=== PATIENT | female | born 1930 | race Caucasian/White ===

== ENCOUNTER 2018-09-13 13:46 | Outpatient (CLI) | payer MEDICARE ==
--- NOTE | 2018-09-13 16:53 | CT ---
CT THORAX WITH IV CONTRAST CT ABDOMEN AND PELVIS WITH IV CONTRAST 09/13/18 HISTORY: Endometrial cancer. COMPARISON: None available. CT THORAX: A few scattered less than 4 mm pulmonary nodule seen within the lateral aspect of the right lower lob e with a larger approximately 6 mm noncalcified pulmonary nodule also present in the right lower lobe . Small subpleural nodular density is also seen at the right lung base. There are a few pulmonary no dules seen at the left lung base each measuring approximately 5 mm. Minimal reticulonodular densities are seen at the more lateral aspect of the right lung base which could be related to minimal infecti ous or inflammatory process. Scattered emphysematous changes are seen within the lungs bilaterally. No pleural effusion is seen. There is no evidence of lymphadenopathy. Dual lead left subclavian cardiac pacemaking device is noted in place. Vascular calcifications are se en involving the coronary arteries as well as the thoracic aorta. Degenerative changes are seen in the spine. CT ABDOMEN AND PELVIS: There is a hypodense lesion within the lateral segment of the left hepatic lobe measuring 3.2 cm worr isome for a metastatic lesion. Subcentimeter too small to characterize hypodense lesions are seen in the superior pole right kidney. The kidneys have a lobulated appearance bilaterally likely related to lobulation. The spleen, pancreas, bilateral adrenal glands and urinary bladder demonstrate a normal CT appearance . There is a low density mass-like structure seen within the central body of the uterus measuring appro ximately 4.1 cm. This may be attributable to patient's known endometrial cancer, but this is difficul t to characterize on CT evaluation. There is a circumscribed hypodense fluid attenuation cystic structure in the right posterolateral asp ect of the pelvis measuring 4 cm which may represent an ovarian cyst. However, this is larger than ty pically expected for postmenopausal female patient. Opacified bowel has a normal CT appearance. There are prominent vascular calcifications seen in the abdominal aorta and involving the iliac arter ies. Vascular stents are seen in the common iliac arteries bilaterally . No free fluid, fluid collection, or lymphadenopathy is seen in the abdomen or pelvis. Degenerative changes are seen in the spine. No lytic or sclerotic osseous lesions are identified. IMPRESSION: 1. Hypodense lesion in the left hepatic lobe not consistent with a cyst and could be related to a metastatic lesion. 2. Scattered subcentimeter pulmonary nodules predominantly within the lower lobes bilaterally wi th faint nodular density in the right upper lobe measuring 7 mm. While these pulmonary nodules overal l are nonspecific, given multiplicity, metastatic disease cannot be entirely excluded. 3. Minimal reticulonodular densities at the posterolateral right lung base which could be relate d to mild infectious or inflammatory process. 4. Hypodense mass-like area centrally within the uterus which may represent patient's known endo metrial cancer. 5. Cystic structure in the right posterior aspect of the pelvis and adnexal region. This may rep resent an ovarian cyst, but given the size of this lesion in a patient of this age, a gynecological c onsultation is suggested. 6. Colonic diverticulosis. 7. Remainder of the findings are as described above including dense vascular calcifications. POS: ASHANTI
== END 2018-09-13 13:47 | disposition home or self-care (01) ==
LOC: BICCT 13:46
PROVIDERS: ATTEND Internal Medicine Hematology & Oncology
DX: C54.1 Malignant neoplasm of endometrium (principal); K76.9 Liver disease, unspecified; J98.4 Other disorders of lung; R91.8 Other nonspecific abnormal finding of lung field; N83.8 Other noninflammatory disorders of ovary, fallopian tube and broad ligament; K57.30 Diverticulosis of large intestine without perforation or abscess without bleeding; I70.0 Atherosclerosis of aorta; I25.10 Atherosclerotic heart disease of native coronary artery without angina pectoris; N28.9 Disorder of kidney and ureter, unspecified; M47.819 Spondylosis without myelopathy or radiculopathy, site unspecified
CPT/HCPCS: 71260; 74177

== ENCOUNTER 2018-09-21 09:31 | Outpatient (CLI) | payer MEDICARE ==
--- NOTE | 2018-09-21 12:38 | PET ---
PET CT: HISTORY: Endometrial cancer. COMPARISON: CT chest, abdomen, and pelvis 09/13/2018. TECHNIQUE: A PET CT was performed from the skull base to the mid thigh after administration of 11.3 mCi of F18-F DG. FINDINGS: Hypermetabolic activity is seen within the uterus with a max SUV value of 17.9. This corresponds to the finding on CT and represents the patient's uterine malignancy. No hypermetabolic activity is see n within other areas of pelvis to suggest metastatic disease to pelvic lymph nodes. No suspicious areas of hypermetabolic activity is seen in the neck or chest. No suspicious areas of hypermetabolic activity are seen in the upper abdomen. Degenerative changes are seen in the spine. No suspicious hypermetabolic activity is seen within the bones. CT images used for attenuation correction show a pacemaker. Atherosclerotic calcifications are seen in the aorta. Diverticula are seen in the colon. IMPRESSION: Hypermetabolic activity is seen within the previously seen uterine mass consistent with the patient's diagnosis of endometrial cancer. There does not appear to be metastatic disease. POS: ASHANTI
== END 2018-09-21 09:32 | disposition home or self-care (01) ==
LOC: PET 09:31
PROVIDERS: ATTEND Internal Medicine Hematology & Oncology
DX: C54.1 Malignant neoplasm of endometrium (principal)
CPT/HCPCS: 78815; A9552

== ENCOUNTER 2019-07-24 16:12 | Inpatient (IN) | payer MEDICARE ==
[2019-07-24 16:44] LABS: #Basophils 0.1 thou/uL (0.0-0.2); #Eosinphils 0.2 thou/uL (0.0-0.7); #Lymphocytes 0.8 thou/uL (1.20-3.40); #Monocytes 0.5 thou/uL (0.11-0.59); #Neutrophils 3.1 thou/uL (1.40-6.50); %Eosinophils 3.7 % (0.0-10.0); %Lymphocytes 16.8 % (21.0-51.0); %Monocytes 10.8 % (0.0-10.0); %Neutrophils 66.7 % (42.0-75.0); Hemoglobin 11.1 g/dL (12.0-16.0); Mean Corpuscular HGB CONC 32.1 g/dL (32.0-36.0); Mean Corpuscular Hemoglobin 31.7 pg (27.0-31.0); Mean Corpuscular Volume 98.8 fL (78.0-98.0); Mean Platelet Volume 7.9 fL (7.4-10.4); Platelet Count 124 thou/uL (130-400); RBC Distribution Width 12.6 % (11.5-14.5); Red Blood Cell (RBC) Count 3.51 mill/uL (4.20-5.40); White Blood Cell (WBC) Count 4.6 thou/uL (4.8-10.8)
[2019-07-24] MEDS ORDERED: Nitroglycerin 2% Ointment 1 INCH/1 GM Packet ONE (16:44)
[2019-07-24] MEDS ORDERED: Aspirin 325 MG TAB ONE (16:44)
[2019-07-24 16:59] LABS: ALT (SGPT) 24 U/L (8-55); AST (SGOT) 25 U/L (5-34); Albumin 3.9 g/dL (3.4-4.8); Alkaline Phosphatase 57 U/L (40-110); Anion Gap 15 mmol/L (10-20); BUN (Urea Nitrogen) 45 mg/dL (9.8-20.1); Bilirubin, Total 0.4 mg/dL (0.2-1.2); CK (CPK) 95 U/L (29-168); Calc. Creatinine Clearance 0 mL/min (70-130); Calcium 8.7 mg/dL (7.8-10.44); Carbon Dioxide 25 mmol/L (23-31); Chloride 110 mmol/L (98-107); Estimated GFR-MDRD 18; Globulin 2.8 g/dL (2.4-3.5); Glucose 89 mg/dL (83-110); Lipase 49 U/L (8-78); Potassium 4.8 mmol/L (3.5-5.1); Protein, Total 6.7 g/dL (6.0-8.3); Sodium 145 mmol/L (136-145)
--- NOTE | 2019-07-24 17:35 | RAD ---
CHEST TWO VIEWS: 07/24/19 HISTORY: Dyspnea. COMPARISON: 09/13/18. FINDINGS: Cardiac silhouette is unremarkable. Pulmonary vasculature is slightly engorged with widespread reticu lonodular interstitial prominence. Mediastinum is midline with aortic calcification and a dual lead l eft subclavian cardiac electronic device. Blunting of the costophrenic angles. No lobar consolidation or evidence of pneumothorax. IMPRESSION: Pulmonary vascular congestion with minimal bilateral pleural fluid. Atherosclerosis. POS: TPC
[2019-07-24] MEDS ORDERED: hydrALAZINE 20 MG/ML VIAL ONE (17:49)
[2019-07-24] MEDS ORDERED: Furosemide 20 MG/2 ML VIAL ONE (18:35)
[2019-07-24] MEDS ORDERED: Labetalol HCl 100 MG/20 ML VIAL ONE (18:35)
[2019-07-24] MEDS ORDERED: Acetaminophen 325 MG TAB PO PRN (20:38)
[2019-07-24] MEDS ORDERED: Ondansetron ODT 4 MG TAB SL PRN (20:38)
[2019-07-24] MEDS ORDERED: Ondansetron PF 4 MG/2 ML Vial IVP PRN (20:38)
[2019-07-24] MEDS ORDERED: Nitroglycerin 2% Ointment 1 INCH/1 GM Packet TOP SCH (20:45)
[2019-07-24 23:05] VITALS: BMI 29.1
[2019-07-24] MEDS ORDERED: Carvedilol 6.25 MG TAB PO SCH (23:30)
[2019-07-25] MEDS ORDERED: Senokot S 8.6-50 MG TAB PO PRN (03:35)
[2019-07-25] MEDS ORDERED: Bisacodyl 10 MG SUPP PR PRN (03:35)
[2019-07-25] MEDS ORDERED: Acetaminophen 325 MG TAB PO PRN ×2 (03:35)
--- NOTE | 2019-07-25 04:04 | HP ---
REASON FOR ADMISSION: Shortness of breath. HISTORY OF PRESENTING ILLNESS: The patient gives history of shortness of breath from last 2 days. No complaints of chest pain or palpitation. She has had orthopnea and had to use 2 pillows. She ambulates by herself. The patient says she follows up with Dr. Marsh. She does not recall when her last stress test was. She has had 2 stents placed 5 or 6 years ago and also has a [employer] pacemaker. Has dry cough, but no expectoration. No fever at home. No flu-like illness. PAST MEDICAL AND SURGICAL HISTORY: History of [employer] pacemaker placed in September 15, 2017. Has 2 prior stents placed to coronaries 5 or 6 years ago. Follows up with Dr. Marsh, hypertension, dyslipidemia, hypothyroidism, gout, possible COPD , endometrial cancer, for which she follows up at [facility]. Has not received any chemo or radiation. She has had hysterectomy done. CURRENT MEDICATION: 1. Crestor 20 mg p.o. daily p.o. daily. 2. Irbesartan 300 mg p.o. daily. 3. Vitamin B12 1000 mcg p.o. daily. 4. Triamterene with hydrochlorothiazide 37.5/25 mg p.o. daily. 5. Trazodone 50 mg p.o. at bedtime. 6. Protonix 40 mg p.o. daily. 7. Magnesium oxide 250 mg p.o. daily. 8. Levothyroxine 88 mcg p.o. daily. 9. Gabapentin 300 mg p.o. at bedtime. 10. Ferrous sulfate 325 mg p.o. daily. 11. Coreg 6.25 mg twice daily. 12. Norvasc 10 mg daily. 13. Allopurinol 100 mg p.o. daily. 14. Clonidine transdermal patch weekly p.r.n. ALLERGIES: NO KNOWN DRUG ALLERGIES. PERSONAL HISTORY: Quit smoking 30 years ago prior to which has smoked for more than 30 years, one pack a day. Does not abuse alcohol or drugs. Lives with her . FAMILY HISTORY: Both parents in their 70s. She does not recall the exact cause of their . CODE STATUS: Full. Power of city attorney is her REVIEW OF SYSTEMS: CONSTITUTIONAL: Negative for weight loss or gain, ability to conduct usual activities. SKIN: Negative for rash, itching. EYES: Negative for double vision, pain. ENT/MOUTH: Negative for nose bleeding, neck stiffness, pain, tenderness. CARDIOVASCULAR: Negative for palpitations, dyspnea on exertion, orthopnea. RESPIRATORY: Negative for shortness of breath, wheezing, cough, hemoptysis, fever or night sweats. GASTROINTESTINAL: Negative for poor appetite, abdominal pain, heartburn, nausea , vomiting, constipation, or diarrhea. GENITOURINARY: Negative for urgency, frequency, dysuria, nocturia. MUSCULOSKELETAL: Negative for pain, swelling. NEUROLOGIC/PSYCHIATRIC: Negative for anxiety, depression. ALLERGY/IMMUNOLOGIC: Negative for skin rash, bleeding tendency. PHYSICAL EXAMINATION: GENERAL: The patient is an 89-year-old female, who is currently not in any acute distress. VITAL SIGNS: Blood pressure on arrival was 226/119, currently 160/70, pulse 74 per minute, respiratory rate 20 per minute, temperature 98 degrees Fahrenheit, saturating 96% on room air. NECK: Supple. No elevated JVD. HEENT: Eyes; extraocular muscles intact. Pupils reacting to light. Oral cavity, mucous membranes are moist. No exudates or congestion. CARDIOVASCULAR: S1, S2 heard. Regular rhythm. RESPIRATORY: Air entry 1+ bilateral. Scattered rales in the infrascapular area. ABDOMEN: Soft, bowel sounds heard. No tenderness, rigidity or guarding. EXTREMITIES: No peripheral edema or calf tenderness. VASCULAR: Peripheral pulses 1+ bilateral. No ischemic ulcerations or gangrene. CENTRAL NERVOUS SYSTEM: No gross focal deficits noted. The patient is alert, awake oriented well. PSYCHIATRIC: The patient's mood is euthymic. No hallucinations or delusions. LABORATORY DATA: Chest x-ray done shows pulmonary vascular congestion. White count of 4.6, H and H 11 and 34, platelet count 124, MCV 98 with 66% neutrophils. BUN 45, creatinine 2.5. Troponin 2nd set is 0.03. CK levels are 95. Liver enzymes within normal limits. TSH 3.69. Lipase 49. Albumin is 3.9. CLINICAL IMPRESSION AND PLAN: The patient will be admitted to telemetry for likely new onset congestive heart failure exacerbation. She also has heavy history of smoking. She might have a component of chronic obstructive pulmonary disease flare up as well. We will obtain an echo with 2D Doppler for left ventricular function. We will also obtain records from Dr. Marsh's office. She has had hypertensive urgency on arrival, which is slowly resolving. We will continue Coreg, Crestor, Protonix, magnesium oxide, Synthroid, DuoNebs, Neurontin, ferrous sulfate, allopurinol as before. Based on echo findings, we will obtain Cardiology consultation, if needed. BNP levels will be obtained now as well. Job ID: [id number] MTDD
[2019-07-25] MEDS ORDERED: Furosemide 40 MG/4 ML VIAL SLOW IVP SCH (06:00)
[2019-07-25] MEDS: Levothyroxine Sodium 88 MCG TAB PO SCH (06:16)
[2019-07-25 09:04] LABS: Albumin 3.6 g/dL (3.4-4.8); Anion Gap 14 mmol/L (10-20); BUN (Urea Nitrogen) 47 mg/dL (9.8-20.1); BUN/Creatinine Ratio 16.67; Calc. Creatinine Clearance 17 mL/min (70-130); Calcium 8.6 mg/dL (7.8-10.44); Carbon Dioxide 24 mmol/L (23-31); Chloride 107 mmol/L (98-107); Estimated GFR-MDRD 16; Glucose 89 mg/dL (83-110); Phosphorus 4.6 mg/dL (2.3-4.7); Potassium 4.1 mmol/L (3.5-5.1); Sodium 141 mmol/L (136-145)
[2019-07-25] MEDS: Enoxaparin Sodium 30 MG/0.3 ML SYRINGE SC SCH (09:08)
[2019-07-25] MEDS: Cyanocobalamin (Vitamin B-12) 1,000 MCG TAB PO SCH (09:08)
[2019-07-25] MEDS: Magnesium Oxide 250 MG TAB PO SCH (09:08)
[2019-07-25] MEDS: Ferrous Sulfate 325 MG TAB PO SCH (09:08)
[2019-07-25] MEDS: Carvedilol 6.25 MG TAB PO SCH ×2 (09:08→21:35)
[2019-07-25] MEDS: Allopurinol 100 MG TAB PO SCH (09:08)
[2019-07-25 10:33] LABS: Bilirubin Negative (Negative); Blood, Urine Negative (Negative); Clarity Clear (Clear); Glucose, Urine (Dipstick) Normal (Negative); Leukocyte 25 Leu/uL (Negative); Nitrite Negative (Negative); Protein, Urine (Dipstick) Negative (Neg-Trace); RBC/HPF 0-3 HPF (0-3); Squamous Epithelial 0-3 HPF (0-3); Transitional Epithelial 0-3 HPF (None Seen); Urobilinogen Normal mg/dL (Less than 2); WBC/HPF 0-3 HPF (0-3)
[2019-07-25 10:44] LABS: Bacteria/HPF None Seen HPF (None Seen)
[2019-07-25 10:45] LABS: Urine Culture Reflex No No
[2019-07-25] MEDS ORDERED: NIFEdipine XL 30 MG TAB PO SCH (10:45)
--- NOTE | 2019-07-25 11:33 | CON ---
DATE OF CONSULTATION: 07/25/2019 SERVICE: Nephrology. REASON FOR CONSULTATION: Acute kidney injury. REQUESTING PHYSICIAN: Rich Moreland MD HOSPITAL COURSE: 89-year-old female with past medical history significant for hypertension, hyperlipidemia, uterine cancer status post resection and others, admitted with worsening shortness of breath especially with exertion. The patient also reported nausea and ill feeling for several days, but denied nausea and vomiting. The patient and reported that oral intake has been poor in the last several days. She admitted to cough, which is dry, but denied chest pain, palpitation, leg swelling, fever, chills, dysuria, hematuria, hematemesis, hematochezia, or change in mental status. On presentation to the ER, the patient was found to have elevated blood pressures as well as elevated creatinine of 2.55, which is acutely elevated relative to baseline of 1.2. PAST MEDICAL HISTORY: 1. Hypothyroidism. 2. Hypertension. 3. Dyslipidemia. 4. Coronary artery disease status post stent placement. 5. Endometrial cancer. 6. Presumed COPD. PAST SURGICAL HISTORY: 1. Pacemaker placement. 2. Cardiac catheterization. 3. Hysterectomy. FAMILY HISTORY: Reviewed, but noncontributory. Both parents in their 70s. SOCIAL HISTORY: The patient lives with . She is a former smoker after 30 years of smoking. Denied alcohol or recreational drug use. ALLERGIES: NO KNOWN DRUG ALLERGIES REPORTED. PRIOR TO HOSPITAL MEDICATIONS: 1. Acetaminophen 325 mg p.o. t.i.d. 2. Allopurinol 100 mg p.o. daily. 3. Amlodipine 2.5 mg p.o. daily. 4. Clonidine patch 0.1 mg transdermal. 5. Carvedilol 6.25 mg p.o. b.i.d. 6. Vitamin B12 1000 mcg p.o. daily. 7. Ferrous sulfate 325 mg p.o. daily. 8. Gabapentin 300 mg p.o. daily at bedtime. 9. Irbesartan 300 mg p.o. daily. 10. Levothyroxine 88 mcg p.o. daily. 11. Magnesium chloride 250 mg p.o. daily. 12. Protonix 40 mg p.o. daily. 13. Crestor 20 mg p.o. daily at bedtime. 14. Senna 8.6 mg p.o. daily p.r.n. for constipation. 15. Trazodone 50 mg p.o. daily at bedtime p.r.n. 16. Triamterene hydrochlorothiazide 0.5 tablet daily. CURRENT HOSPITAL MEDICATIONS: 1. Allopurinol 100 mg p.o. daily. 2. Carvedilol 6.25 mg p.o. b.i.d. 3. Cyanocobalamin 1000 mcg p.o. daily. 4. Lovenox 30 mg p.o. daily. 5. Ferrous sulfate 325 mg p.o. daily. 6. Neurontin 300 mg p.o. daily at bedtime. 7. DuoNeb 3 mL q.6 p.r.n. for shortness of breath. 8. Levothyroxine 88 mcg p.o. daily. 9. Magnesium oxide 250 mg p.o. daily. 10. Protonix 40 mg p.o. daily. 11. Crestor 20 mg p.o. daily at bedtime. 12. Trazodone 50 mg p.o. daily at bedtime p.r.n. REVIEW OF SYSTEMS: A 12-point review of system performed and was negative other than pertinent positives and negatives listed in the history of present illness. PHYSICAL EXAMINATION: VITAL SIGNS: Temperature 97.8, pulse 64, respiratory rate 16, SpO2 of 94% on room air, and blood pressure is 184/79. GENERAL: Comfortable elderly female, in no obvious distress. Afebrile. Anicteric. Acyanotic. HEENT: Normocephalic, atraumatic. Oral mucosa is mildly dry. NECK: Supple. Nontender with good range of motion. No JVD appreciated. No obvious masses also was appreciated. CARDIOVASCULAR: Regular rhythm and rate with normal heart sounds 1 and 2. Soft systolic murmur noted. RESPIRATORY: Fair air entry bilaterally with no obvious crackle or rhonchi or use of accessory muscles. GI: Full, soft, nontender, nondistended with normal bowel sounds. EXTREMITIES: Grossly normal looking, atraumatic with no edema or erythema. Distal pulses are palpable. INDUSTRIAL HYGENIST: Conscious, alert, and oriented x3 with appropriate mental status. Cranial nerves 2 through 12 are grossly intact. The patient moves all extremities. DIAGNOSTIC DATA: CBC on presentation on July 24, 2019 showed WBC count of 4.6, hemoglobin of 11.1, MCV of 98.8, and platelet of 124. Renal function panel today showed sodium 141, potassium 4.1, chloride 107, CO2 of 24, BUN 47, creatinine 2.82, glucose 89, calcium 8.6, phosphorus 4.6, albumin 3.6. On presentation on July 24, 2019, CMP showed sodium 145, potassium 4.8, chloride 110, CO2 of 25, BUN 45, creatinine 2.55, glucose 89, calcium 8.7, total bilirubin 0.4, AST 25, ALT 24, alkaline phosphatase 57, total protein 6.7, and albumin 3.9. Cardiac markers showed CK 95 and troponin of 0.021 on presentation. BNP earlier today showed 969.5. Lactic acid on presentation was 0.7. Lipase on presentation was 49. Chest x-ray performed on presentation showed pulmonary vasculature that is slightly engorged with widespread reticulonodular interstitial prominence. Blunting of the costophrenic angles was noted, but no lobar consolidation or evidence of pneumothorax. ASSESSMENT: 1. Acute kidney injury: Etiology is unclear, but this seems to be hemodynamic mediated from effect of volume depletion from poor oral intake as well as that of irbesartan. Some contribution from cardiorenal syndrome cannot be ruled out at this time. However, the patient seems clinically dry. There is no jugular venous distention or leg edema and chest examination was unremarkable. 2. Uncontrolled hypertension. 3. Chronic kidney disease stage 3 with baseline creatinine of 1.0-1.2. 4. Poor appetite with poor oral intake in the last several days. PLAN: 1. We will hold all nephrotoxic agent including RAAS karina and diuretics. We will get urinalysis as well as urine electrolytes to calculate fractional excretion of sodium and urea. 2. We will also get renal ultrasound. 3. We will start the patient on normal saline at 100 mL/h. We will also start the patient on nifedipine to get adequate BP control. Echocardiogram has been ordered. We will review diagnostic tests when available. We will recheck renal function later today. Further recommendation to follow depending on hospital course and review of other diagnostic tests. Many thanks for involving us in the care of this patient. We will follow along with you. Job ID: [id number]
[2019-07-25] MEDS: Sodium Chloride 0.9% 1,000 ML IV SCH (12:08)
--- NOTE | 2019-07-25 12:39 | ULT ---
RENAL SONOGRAM: HISTORY: Acute renal failure. FINDINGS: The right kidney measures up to 10.3 cm. Severe dilatation of the collecting system. The left kidney is 13.4 cm in length. Severe dilatation of the collecting system. The urinary bladder shows no focal abnormalities. Left ureteral jet is visualized. Right ureteral jet not visualized. IMPRESSION: 1. Severe bilateral hydronephrosis. 2. Left ureteral jet suggests high grade but incomplete left ureteral obstruction. Findings are sugge stive of very high grade or complete right ureteral obstruction. POS: TPC
--- NOTE | 2019-07-25 13:17 | PDOC.HOSPP ---
- Subjective Encounter Date: 07/25/19 Encounter Time: 07:40 Subjective: Pt seen for followup re: DANIEL. Feels better. No chest pain. Shortness of breath is better. - Objective Vital Signs & Weight: Vital Signs (12 hours) Temp Pulse Pulse Pulse Resp BP BP 07/25/19 12:08 78 165/74 H 07/25/19 11:55 97.8 F 62 18 07/25/19 09:18 64 70 179/76 H 07/25/19 09:08 165/74 H 07/25/19 08:00 97.8 F 63 16 07/25/19 07:02 80 12 07/25/19 03:28 98.6 F 69 18 BP BP Pulse Ox Pulse Ox Pulse Ox Pulse Ox 07/25/19 12:08 07/25/19 11:55 175/81 H 94 L 07/25/19 09:18 184/79 H 94 L 94 L 94 L 07/25/19 09:08 07/25/19 08:00 165/74 H 94 L 07/25/19 07:02 07/25/19 03:28 161/70 H 92 L Weight Weight 169 lb 11.2 oz I&O: 07/24/19 07/25/19 07/26/19 06:59 06:59 06:59 Intake Total 600 480 Output Total 350 Balance 250 480 Result Diagrams: 07/24/19 16:31 07/25/19 08:28 Additional Labs: Labs and MARs reviewed by nd Hospitalist ROS - Review of Systems Respiratory: reports: SOB with excertion. denies: cough, dry, shortness of breath, hemoptysis, pleuritic pain, sputum, wheezing Cardiovascular: denies: chest pain, palpitations, orthopnea, paroxysmal noc. dyspnea, edema, light headedness - Medication Medications: Active Medications Generic Name Dose Route Start Last Admin Trade Name Freq PRN Reason Stop Dose Admin Acetaminophen 650 mg 07/25/19 03:35 07/25/19 03:44 Tylenol PO 650 mg Q4H PRN Administration Headache/Fever/Mild Pain (1-3) Albuterol/Ipratropium 3 ml 07/25/19 07:00 07/25/19 07:02 Duoneb NEB 3 ml [id number] DAVID Administration Allopurinol 100 mg 07/25/19 09:00 07/25/19 09:08 Zyloprim PO 100 mg DAILY DAVID Administration Carvedilol 6.25 mg 07/25/19 09:00 07/25/19 09:08 Coreg PO 6.25 mg BID DAVID Administration Cyanocobalamin 1,000 mcg 07/25/19 09:00 07/25/19 09:08 Vitamin B-12 PO 1,000 mcg DAILY DAVID Administration Enoxaparin Sodium 30 mg 07/25/19 09:00 07/25/19 09:08 Lovenox SC 30 mg 0900 DAVID Administration Ferrous Sulfate 325 mg 07/25/19 09:00 07/25/19 09:08 Feosol PO 325 mg DAILY DAVID Administration Sodium Chloride 1,000 mls @ 100 mls/hr 07/25/19 10:45 07/25/19 12:08 Normal Saline 0.9% IV 1,000 mls .Q10H DAVID Administration Levothyroxine Sodium 88 mcg 07/25/19 06:00 07/25/19 06:16 Synthroid PO 88 mcg 0600 DAVID Administration Magnesium Oxide 250 mg 07/25/19 09:00 07/25/19 09:08 Magnesium Oxide PO 250 mg DAILY DAVID Administration Pantoprazole Sodium 40 mg 07/25/19 09:00 07/25/19 09:08 Protonix PO 40 mg DAILY DAVID Administration - Exam General Appearance: NAD Eye: anicteric sclera ENT: moist mucosa Neck: supple Heart: RRR Respiratory - other findings: Bibasal crackles Gastrointestinal: soft, non-tender Musculoskeletal: no muscle wasting Psychiatric: normal affect, normal behavior Hosp A/P (1) Acute worsening of stage 3 chronic kidney disease Code(s): N18.3 - CHRONIC KIDNEY DISEASE, STAGE 3 (MODERATE) Status: Acute (2) Hypertensive urgency Code(s): I16.0 - HYPERTENSIVE URGENCY Status: Acute (3) Shortness of breath Code(s): R06.02 - SHORTNESS OF BREATH Status: Acute (4) CAD (coronary artery disease) Code(s): I25.10 - ATHSCL HEART DISEASE OF [place] CORONARY ARTERY W/O ANG PCTRS Status: Chronic (5) Dyslipidemia Code(s): E78.5 - HYPERLIPIDEMIA, UNSPECIFIED Status: Chronic (6) Hypothyroidism Code(s): E03.9 - HYPOTHYROIDISM, UNSPECIFIED Status: Chronic - Plan IV hydration. CARRENO ikely multifactorial. Await 2D echo report. BNP elevated. Continue synthroid. BP improved.
[2019-07-25 17:40] LABS: Creatinine, Urine 58.88 mg/dL (47-110)
--- NOTE | 2019-07-25 17:58 | CT ---
CT OF THE ABDOMEN AND PELVIS WITHOUT IV CONTRAST INDICATION: Bilateral hydronephrosis and acute renal injury with history of endometrial cancer and hy sterectomy COMPARISON: CT the chest, abdomen and pelvis dated September 13, 2018 renal ultrasound dated June 272018 FINDINGS: This examination is limited for the evaluation of solid organs and vascular structures due to the lac k of intravenous contrast. ABDOMEN: Lung bases: There are small bilateral pleural effusions. There is bibasilar emphysema Liver: There is an enlarging medial left hepatic lobe mass now measuring 6.2 cm were previously measu red 3.8 cm. Gallbladder: Normal appearing. Pancreas: Normal. Adrenal glands: Normal. Spleen: Normal. Kidneys and ureters: There is severe bilateral hydronephrosis and hydroureter with a transition of th e uterus within the lower pelvis, just proximal to the bladder at the level bilateral partially calcified pelvic masses. This is on image 62 of series 2. The right pelvic mass measures 3.3 cm. Left measures 2.6 cm. Vasculature: There are severe vascular calcifications seen involving the visualized vasculature. Ther e is an endograft stents within both common iliac arteries. Lymph nodes:There is a new 1.7 cm left periaortic lymph node on image 28 series 2. There is a 1.2 cm periaortic lymph node on image 38 of series 2. Free fluid in abdomen:Mild PELVIS: Small and large bowel: There are scattered colonic diverticulosis. Small bowel is of normal caliber. Appendix:Not definitely seen Bladder: Normal. Rectal and perirectal soft tissues:Normal. Reproductive structures: There is been interval hysterectomy. Free fluid in pelvis: Mild Lymphadenopathy pelvis: No lymphadenopathy is evident. Osseous structures: There is an interval superior endplate compression fracture of T10 was not presen t on the comparison examination August 2018. There is diffuse osteopenia. There is thoracolumbar scoliosis. There is scattered degenerative and osteoarthritic changes. Soft tissues:There is mild anasarca IMPRESSION: 1. Interval development of severe bilateral hydronephrosis and hydroureter with transition of the ure ters within the lower pelvis, just proximal to the bladder, at the level of bilateral partially calcified pelvic masses. These masses may reflect scar tissue from surgery or prior radiation therapy ; however, regional malignancy is most suspected. 2. Worsening hepatic metastatic disease. Interval development of a periaortic lymphadenopathy suspici ous for malignant lymphadenopathy of the retroperitoneum. 3. Interval age-indeterminate superior endplate T10 compression abnormality. 4. Small bilateral pleural effusions, mild ascites and mild anasarca 5. Interval hysterectomy
[2019-07-25] MEDS ORDERED: FLU VACC TS2019-20(65YR UP)/PF 180 MCG/0.5 ML SYRINGE IM ONE (21:00)
[2019-07-25] MEDS: Gabapentin 300 MG CAP PO SCH (21:35)
[2019-07-25] MEDS: Rosuvastatin 20 MG TAB PO SCH (21:35)
[2019-07-26] MEDS: Sodium Chloride 0.9% 1,000 ML IV SCH ×3 (00:07→17:36)
[2019-07-26] MEDS: traZODone HCl 50 MG TAB PO PRN ×2 (00:48→21:39)
[2019-07-26 04:52] LABS: #Eosinphils 0.1 thou/uL (0.0-0.7); #Lymphocytes 0.8 thou/uL (1.20-3.40); #Monocytes 0.4 thou/uL (0.11-0.59); #Neutrophils 2.1 thou/uL (1.40-6.50); %Basophils 0.9 % (0.0-1.0); %Eosinophils 3.4 % (0.0-10.0); %Lymphocytes 22.4 % (21.0-51.0); %Monocytes 11.9 % (0.0-10.0); %Neutrophils 61.4 % (42.0-75.0); Hemoglobin 10.9 g/dL (12.0-16.0); Mean Corpuscular HGB CONC 33.8 g/dL (32.0-36.0); Mean Corpuscular Volume 97.6 fL (78.0-98.0); Mean Platelet Volume 7.9 fL (7.4-10.4); Platelet Count 136 thou/uL (130-400); RBC Distribution Width 12.2 % (11.5-14.5); White Blood Cell (WBC) Count 3.5 thou/uL (4.8-10.8)
[2019-07-26 04:58] LABS: Albumin 3.8 g/dL (3.4-4.8); Anion Gap 14 mmol/L (10-20); BUN (Urea Nitrogen) 41 mg/dL (9.8-20.1); BUN/Creatinine Ratio 15.41; Calc. Creatinine Clearance 18 mL/min (70-130); Calcium 8.8 mg/dL (7.8-10.44); Carbon Dioxide 25 mmol/L (23-31); Chloride 107 mmol/L (98-107); Estimated GFR-MDRD 17; Glucose 90 mg/dL (83-110); Potassium 3.7 mmol/L (3.5-5.1); Sodium 142 mmol/L (136-145)
[2019-07-26] MEDS: Levothyroxine Sodium 88 MCG TAB PO SCH (05:48)
[2019-07-26] MEDS: Enoxaparin Sodium 30 MG/0.3 ML SYRINGE SC SCH (08:39)
[2019-07-26] MEDS: Magnesium Oxide 250 MG TAB PO SCH (08:39)
[2019-07-26] MEDS: Cyanocobalamin (Vitamin B-12) 1,000 MCG TAB PO SCH (08:39)
[2019-07-26] MEDS: NIFEdipine XL 60 MG TAB PO SCH (08:39)
[2019-07-26] MEDS: Carvedilol 6.25 MG TAB PO SCH ×2 (08:39→21:35)
[2019-07-26] MEDS: Allopurinol 100 MG TAB PO SCH (08:39)
[2019-07-26] MEDS: Ferrous Sulfate 325 MG TAB PO SCH (08:39)
[2019-07-26] MEDS ORDERED: FLU VACC TS2019-20(65YR UP)/PF 180 MCG/0.5 ML SYRINGE IM ONE (09:00)
--- NOTE | 2019-07-26 12:41 | PDOC.HOSPP ---
- Subjective Encounter Date: 07/26/19 Encounter Time: 08:15 Subjective: No complaint espressed.. - Objective Vital Signs & Weight: Vital Signs (12 hours) Temp Pulse Pulse Pulse Resp BP BP 07/26/19 10:59 72 12 07/26/19 09:30 73 71 133/59 L 07/26/19 08:39 68 163/73 H 07/26/19 08:00 97.6 F 69 16 07/26/19 06:30 68 12 07/26/19 03:36 98.1 F 63 16 BP BP Pulse Ox 07/26/19 10:59 07/26/19 09:30 146/64 H 07/26/19 08:39 07/26/19 08:00 163/73 H 97 07/26/19 06:30 07/26/19 03:36 159/72 H 94 L Weight Weight 170 lb 3.2 oz I&O: 07/25/19 07/26/19 07/27/19 06:59 06:59 06:59 Intake Total 600 2728 480 Output Total 350 2360 Balance 250 368 480 Result Diagrams: 07/26/19 04:01 07/26/19 04:01 Hospitalist ROS - Medication Medications: Active Medications Generic Name Dose Route Start Last Admin Trade Name Freq PRN Reason Stop Dose Admin Acetaminophen 650 mg 07/25/19 03:35 07/25/19 03:44 Tylenol PO 650 mg Q4H PRN Administration Headache/Fever/Mild Pain (1-3) Albuterol/Ipratropium 3 ml 07/25/19 07:00 07/26/19 10:59 Duoneb NEB 3 ml [id number] DAVID Administration Allopurinol 100 mg 07/25/19 09:00 07/26/19 08:39 Zyloprim PO 100 mg DAILY DAVID Administration Carvedilol 6.25 mg 07/25/19 09:00 07/26/19 08:39 Coreg PO 6.25 mg BID DAVID Administration Cyanocobalamin 1,000 mcg 07/25/19 09:00 07/26/19 08:39 Vitamin B-12 PO 1,000 mcg DAILY DAVID Administration Enoxaparin Sodium 30 mg 07/25/19 09:00 07/26/19 08:39 Lovenox SC 30 mg 0900 DAVID Administration Ferrous Sulfate 325 mg 07/25/19 09:00 07/26/19 08:39 Feosol PO 325 mg DAILY DAVID Administration Gabapentin 300 mg 07/25/19 21:00 07/25/19 21:35 Neurontin PO 300 mg HS DAVID Administration Sodium Chloride 1,000 mls @ 100 mls/hr 07/25/19 10:45 07/26/19 08:40 Normal Saline 0.9% IV Not Given .Q10H DAVID Levothyroxine Sodium 88 mcg 07/25/19 06:00 07/26/19 05:48 Synthroid PO 88 mcg 0600 DAVID Administration Magnesium Oxide 250 mg 07/25/19 09:00 07/26/19 08:39 Magnesium Oxide PO 250 mg DAILY DAVID Administration Nifedipine 60 mg 07/26/19 09:00 07/26/19 08:39 Procardia Xl PO 60 mg DAILY DAVID Administration Pantoprazole Sodium 40 mg 07/25/19 09:00 07/26/19 08:39 Protonix PO 40 mg DAILY DAVID Administration Rosuvastatin Calcium 20 mg 07/25/19 21:00 07/25/19 21:35 Crestor PO 20 mg HS DAVID Administration Trazodone HCl 50 mg 07/25/19 01:22 07/26/19 00:48 Desyrel PO 50 mg HS PRN Administration Insomnia - Exam General Appearance: NAD Neck: supple Heart: RRR Respiratory: CTAB Gastrointestinal: soft Extremities: 1+ LE edema Neurological: no weakness Hosp A/P (1) Pelvic mass in female Code(s): R19.00 - INTRA-ABD AND PELVIC SWELLING, MASS AND LUMP, UNSP SITE Status: Acute Plan: Oncology consulted.. (2) Liver metastases Code(s): C78.7 - SECONDARY MALIG NEOPLASM OF LIVER AND INTRAHEPATIC BILE DUCT Status: Acute (3) Acute worsening of stage 3 chronic kidney disease Code(s): N18.3 - CHRONIC KIDNEY DISEASE, STAGE 3 (MODERATE) Status: Acute Plan: f/u chemistry... consult. (4) Hypertensive urgency Code(s): I16.0 - HYPERTENSIVE URGENCY Status: Acute Plan: Adjust bp meds (5) Shortness of breath Code(s): R06.02 - SHORTNESS OF BREATH Status: Acute Plan: Hep lock IV.. (6) CAD (coronary artery disease) Code(s): I25.10 - ATHSCL HEART DISEASE OF [place] CORONARY ARTERY W/O ANG PCTRS Status: Chronic Plan: stable.. (7) Dyslipidemia Code(s): E78.5 - HYPERLIPIDEMIA, UNSPECIFIED Status: Chronic (8) Hypothyroidism Code(s): E03.9 - HYPOTHYROIDISM, UNSPECIFIED Status: Chronic (9) Bilateral hydronephrosis Code(s): N13.30 - UNSPECIFIED HYDRONEPHROSIS Status: Acute Plan: Consult .. - Plan , Oncology consult. Hep lock IV. Continue current management..
--- NOTE | 2019-07-26 12:51 | PRG ---
DATE OF SERVICE: 07/26/2019 SERVICE: Nephrology. SUBJECTIVE: An 89-year-old female with endometrial cancer, status post hysterectomy, admitted due to abnormal labs. The patient was found to have elevated creatinine. She also reported poor oral intake, nausea, and generalized weakness. Feeling better. Further evaluation with renal ultrasound showed bilateral hydronephrosis. Nausea and vomiting have subsided. No history of chest pain or fever. OBJECTIVE: VITAL SIGNS: Temperature 97.6, pulse 72, respiratory rate 12, SpO2 97% on room air, blood pressure is 133/59. GENERAL: Elderly female, in no distress. Afebrile. Anicteric. Acyanotic. HEENT: Normocephalic, atraumatic. Oral mucosa is moist. CARDIOVASCULAR: Regular rhythm and rate with normal heart sounds 1 and 2. RESPIRATORY: Fair air entry bilateral with few transmitted breath sounds. GI: Full, soft, nontender, nondistended with normal bowel sounds. EXTREMITIES: Grossly normal looking atraumatic with no edema or erythema. I and O in the last 24 hours showed intake of 2728 with output of 2360 with net positive balance of 368. DIAGNOSTIC DATA: Renal function panel showed sodium 142, potassium 3.7, chloride 107, CO2 of 25, BUN 41, creatinine 2.66, glucose 90, calcium 8.8, phosphorus 4.0, albumin 3.8. Of note, creatinine was 2.82 yesterday and BUN was [address] scan of the abdomen and pelvis without contrast showed interval development of severe bilateral hydronephrosis and hydroureter with transition of the ureter within the lower pelvis just proximal to the bladder at the level of bilateral partial calcified pelvic masses. Also, noted worsening hepatic metastatic disease with interval development of periaortic lymphadenopathy suspicious for malignant lymphadenopathy of retroperitoneum as well as interval age indeterminate superior end-plate T10 compression abnormality and small bilateral pleural effusion, mild ascites, and mild anasarca. ASSESSMENT: 1. Acute kidney injury: This is most likely multifactorial in etiology with hemodynamic effect mediated by volume depletion from poor oral intake as well as irbesartan and diuretic use superimposed on severe hydronephrosis. Creatinine is beginning to trend down with IV fluids. 2. Obstructive uropathy: Most likely related to metastatic cancer. 3. Presumed metastatic endometrial cancer. 4. Liver masses. 5. Chronic kidney disease stage 3 with baseline creatinine of 1.0 to 1.2. 6. Hypertension: Control is better. PLAN: 1. Continue IV fluid for now. Continue to hold nephrotoxic agents including irbesartan and diuretics. Continue nifedipine to get adequate BP control. 2. Urology consult has been requested as well as Oncology consult. Treatment of obstructive uropathy as per urologist. We will continue to monitor fluid status in view of continued IV fluid therapy to avoid fluid overload. Repeat renal function panel in the morning. Other treatment as per other specialties and primary attending. Job ID: [id number]
[2019-07-26] MEDS: Rosuvastatin 20 MG TAB PO SCH (21:35)
[2019-07-26] MEDS: Gabapentin 300 MG CAP PO SCH (21:35)
--- NOTE | 2019-07-26 21:37 | CON ---
DATE OF CONSULTATION: 07/25/2019 CONSULTING: Samantha Vale obi, MD CONSULTED: Tomas Bacon MD REASON FOR CONSULTATION: Bilateral hydronephrosis with acute kidney injury. HISTORY OF PRESENT ILLNESS: Ms. Michaud is an 89-year-old white female with history of endometrial cancer, who was admitted to the hospital recently for shortness of breath for 2 days. She was not feeling well and was having generalized malaise. She came to the emergency room, where she was admitted after CT demonstrated elevation of acute kidney injury along with several other lab abnormalities. Nephrology was consulted secondary to her acute kidney injury. Nephrology ordered a renal ultrasound, which demonstrated bilateral hydronephrosis, at which point I was consulted. I did order a CT stone protocol, which demonstrates that the patient has bilateral hydronephrosis and hydroureter going down to a calcified pelvic mass in the patient's prior area of her cervix and uterus indicating a likely recurrence of her endometrial cancer. There was also significant progression of her hepatic metastasis as well as significant interval development of retroperitoneal lymphadenopathy. On my discussion with the patient, she does not report any current significant pain. She is having some mild discomfort, but nothing significant. She denies any significant voiding problems. She denies any hematuria. She has not had any urinary tract infection. HOME MEDICATIONS: 1. Crestor. 2. Irbesartan. 3. Vitamin B12. 4. Triamterene/hydrochlorothiazide. 5. Trazodone. 6. Protonix. 7. Magnesium oxide. 8. Levothyroxine. 9. Neurontin. 10. Ferrous sulfate. 11. Coreg. 12. Norvasc. 13. Allopurinol. 14. Clonidine. ALLERGIES: NONE. PAST MEDICAL HISTORY: 1. Endometrial cancer, currently under the care of [facility], where her gynecologic oncologist is and Dr. Kim, her medical oncologist. She has not received any chemotherapy or radiation for this, but just had a hysterectomy done. 2. Dyslipidemia. 3. Hypertension. 4. Hypothyroidism. 5. Gout. 6. Possible COPD. PAST SURGICAL HISTORY: 1. Radical hysterectomy. 2. Cardiac stents followed by Dr. Marsh. 3. Pacemaker placement at [facility]. SOCIAL HISTORY: The patient quit smoking 30 years ago. Denies alcohol or illicit drug use. She lives with her and is . FAMILY HISTORY: Noncontributory. REVIEW OF SYSTEMS: A 12-point review of systems reviewed and negative other than what was commented on the HPI. Specifically, the mild shortness of breath, which seems to have resolved currently. PHYSICAL EXAMINATION: VITAL SIGNS: Temperature 97.9, pulse 62, respirations 16, blood pressure 144/67, and saturations 97% on room air. GENERAL: No apparent distress. Communicative and alert, appears stated age. HEENT: Normocephalic and atraumatic. Pupils are symmetric and round. Sclerae are nonicteric. Moist mucous membranes. Trachea midline. CARDIOVASCULAR: Regular rate and rhythm. Normal S1 and S2. Symmetric pulses. CHEST: No increased work of breathing. Symmetric expansion of lungs, bibasilar crackles. ABDOMEN: Soft, nontender, and nondistended. Positive bowel sounds. No organomegaly. Well-healed incision without hernia. EXTREMITIES: No clubbing or cyanosis or edema. MUSCULOSKELETAL: No joint deformities or joint erythema noted. Full range of motion. NEUROLOGIC: Cranial nerves 2 through 12 grossly intact. No focal or sensory motor deficits identified. LYMPH: There is no obvious lymphadenopathy in the supraclavicular, abdominal, or cervical areas. SKIN: Warm and dry. No rashes or lesions. Good turgor. PSYCHIATRIC: Alert and oriented x3. Appropriate mood and affect. The patient did become a little bit tearful during our conversation when I gave her the results of the CT scan. : Deferred at this time. LABORATORY EVALUATION: The full set of labs are in the [facility] system, which I have reviewed. Of note, the patient's white count of 3.5 and hemoglobin of 10.9. Creatinine is currently 2.66, which is slightly improved over 2.8 yesterday. Troponins were elevated, but are now decreasing. IMAGING STUDIES: CT stone protocol from July 25 demonstrates interval development of severe bilateral hydronephrosis and hydroureter with transition of the ureters within the lower pelvis just proximal to the bladder at the level of a partially calcified pelvic mass, which may reflect scar tissue, although regional malignancy is most suspected. There is worsening hepatic metastatic disease with interval development of periaortic and retroperitoneal lymphadenopathy, age-indeterminate superior endplate fracture of T10, small bilateral pleural effusions, interval hysterectomy. ASSESSMENT AND PLAN: An 89-year-old white female with a history of endometrial cancer with likely endometrial cancer recurrence and progression with development of lymph nodes as well as hepatic metastases and perivesical mass resulting in bilateral hydronephrosis, which is severe with acute kidney injury. There may be some element of cardiogenic and prerenal sources of her acute kidney injury, which seem to be improving, although I do not anticipate normalization of her renal function without nephrostomy tubes. I would not necessarily recommend ureteral stents in this setting as there is a high failure rate given the calcified hard mass in the pelvis. We had a discussion today about placing nephrostomy tubes versus consideration of hospice care. This would largely depend on her overall prognosis with the endometrial cancer. I do feel that her oncologist, Dr. Kim should generally be involved in this discussion before any final decisions are made. I will let Dr. Kim know the patient's current circumstances. If she decides that she does wish to pursue aggressive treatment, then I would recommend for nephrostomy tube placement. If she elects for hospice, then I would leave the nephrostomy tubes out and allow for renal failure to occur as this would be a relatively pleasant way to pass away. I will follow along and see what decisions that she has made, although there is no emergency to place any type of tube at the current moment. Job ID: [id number]
--- NOTE | 2019-07-26 22:27 | CON ---
DATE OF CONSULTATION: REASON FOR CONSULT: Endometrial carcinoma. HISTORY OF PRESENT ILLNESS: Ms. 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 She underwent surgical intervention. In September 2018, she decided against chemotherapy and radiation. She had a negative PET scan in August, although she did have a lesion in her left hepatic lobe measuring 3.2 cm. Over the last several days, she has been having shortness of breath, so she presented to the emergency room for evaluation. Her creatinine was elevated, so she underwent an abdominal ultrasound. It showed bilateral hydronephrosis. She then underwent an abdominal and pelvis CT confirming the hydronephrosis. The left hepatic lobe mass was now 6.2 cm. She had a superior endplate T10 compression abnormality. She had small bilateral pleural effusions with mild ascites and anasarca. There was a new 1.7 cm left periaortic lymph node and a 1.2 cm periaortic lymph node. She had calcified pelvic masses measuring 3.3 on the right and 2.6 on the left. She was admitted for further workup. Her BNP on admission was 9.69. She underwent an echocardiogram with an EF of 50% to 55%. She has been seen by Radiology. There is a consult for urology to see the patient. PAST MEDICAL HISTORY: 1. Stage III endometrial carcinoma of the uterus, surgical intervention only. 2. PVD. 3. Coronary artery disease. 4. Hypertension. 5. Hypothyroidism. PAST SURGICAL HISTORY: 1. Hysterectomy. 2. Pacemaker placement. 3. Peripheral stent placement in bilateral lower extremities. ALLERGIES: NO KNOWN DRUG ALLERGIES. HOME MEDICATIONS: 1. Tylenol. 2. Allopurinol. 3. Norvasc. 4. Coreg. 5. Catapres. 6. B12. 7. Iron. 8. Gabapentin. 9. Irbesartan. 10. Synthroid. 11. Protonix. 12. Crestor. 13. Senna. 14. Trazodone. 15. Triamterene/hydrochlorothiazide. FAMILY HISTORY: Brother had a history of cancer. SOCIAL HISTORY: . Has 6 children. Lives with her spouse. Former smoker. No alcohol or illicit drug use. REVIEW OF SYSTEMS: Positive for shortness of breath, and cough. PHYSICAL EXAMINATION: VITAL SIGNS: Temperature is 97.9, pulse is 62, respiratory rate 12, BP is 144/67. She is 97% on room air. GENERAL: This is a well-developed, well-nourished female, in no acute distress. HEENT: Normocephalic, atraumatic. Pupils are equal and reactive to light. NECK: Supple. CV: Regular rate and rhythm. LUNGS: Clear anterior. ABDOMEN: Soft and nontender. EXTREMITIES: No clubbing or cyanosis. SKIN: No rash. NEUROLOGICAL: Nonfocal. PERTINENT LABORATORY DATA AND X-RAYS: Current WBCs are 3.5, hemoglobin 10.9, hematocrit 32.3, platelet count is 136,000, 61% neutrophils, 22% lymphocytes. Sodium 142, potassium 3.7, chloride 107, CO2 is 25, BUN is 14, creatinine 2.66, calcium is 8.8, bilirubin is 0.4. AST is 25, ALT is 24, alkaline phosphatase is 57. Serum total protein 6.7, albumin 3.9, globulin 2.8, lipase 49. TSH is 3.6915. Urine is negative for bacteria. ASSESSMENT: 1. Metastatic endometrial carcinoma. 2. 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 DISCUSSION: The patient is aware of the recurrence of her endometrial carcinoma. She states she wants no further treatment for cancer. We discussed getting urology opinion. If he can stent her easily, it could be palliative, but if not, then we will do nothing and she will go home on hospice in the next 24 hours. Case has been discussed with Dr. Kim and the nurses. Thank you for the consult. Job ID: [id number]
[2019-07-27] MEDS: Guaifenesin DM 100-10/5 ML UDCUP PO PRN ×2 (00:15→20:55)
[2019-07-27] MEDS: Sodium Chloride 0.9% 1,000 ML IV SCH ×3 (01:36→23:31)
--- NOTE | 2019-07-27 01:55 | CON ---
DATE OF CONSULTATION: 07/26/2019 REQUESTING PHYSICIAN: Nicanor Gibbons MD REASON FOR CONSULTATION: Bilateral hydroureteronephrosis. HISTORY OF PRESENT ILLNESS: Ms. 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 The patient underwent surgery at [facility]. She decided against adjuvant chemotherapy. The patient had a negative PET scan in August, although there was a lesion in her left hepatic lobe measuring 3.2 cm. Over the past several days, the patient began developing shortness of breath, so she presented to the emergency department for evaluation. She was noted to have acute kidney injury. A renal ultrasound was performed, which demonstrated bilateral hydroureteronephrosis. A CT scan of the abdomen and pelvis was then performed, which demonstrated bilateral hydroureteronephrosis. There was also enlargement of the mass in the hepatic lobe up to 6.2 cm. There are also enlarged periaortic lymph nodes and multiple calcified pelvic masses, which appeared to be responsible for compression of the ureter and causing the hydroureteronephrosis. Urology was consulted for further evaluation. The patient denies any gross hematuria. No voiding difficulty. No frequency, urgency, or nocturia. Until this point, the patient do not have any evidence of recurrent disease. She has no other complaints. REVIEW OF SYSTEMS: Full 12-point review of systems was performed and is negative other than that mentioned in the HPI. PAST MEDICAL HISTORY: 1. Stage III endometrial carcinoma. 2. Peripheral vascular disease. 3. Coronary artery disease. 4. Hypertension. 5. Hypothyroidism. PAST SURGICAL HISTORY: Hysterectomy, pacemaker placement, peripheral vascular stent in the bilateral lower extremities. ALLERGIES: NO KNOWN DRUG ALLERGIES. HOME MEDICATIONS: 1. Tylenol. 2. Allopurinol. 3. Norvasc. 4. Coreg. 5. Catapres. 6. B12. 7. Iron. 8. Gabapentin. 9. Irbesartan. 10. Synthroid. 11. Protonix. 12. Crestor. 13. Senna. 14. Trazodone. 15. Triamterene/hydrochlorothiazide. FAMILY HISTORY: Noncontributory. SOCIAL HISTORY: She is . She has 6 children. She lives at home with her spouse. She has extensive smoking history in the past, however, quit several years ago. No alcohol or illicit drugs. PHYSICAL EXAMINATION: VITAL SIGNS: Temperature is 97.9, pulse 62, respirations 14, blood pressure 144/67, oxygen saturation 97% on room air. GENERAL: She is alert and oriented x3. Well developed and well nourished, in no apparent distress. HEENT: Normocephalic, atraumatic. NECK: Supple. No masses or lymphadenopathy. CARDIOVASCULAR: Regular rate and rhythm. PULMONARY: Breathing unlabored. ABDOMEN: Soft, nontender/nondistended. No masses or organomegaly. No suprapubic palpation. No CVA tenderness. EXTREMITIES: Warm and well perfused. No edema. NEUROLOGIC: No focal deficits. SKIN: No rash. LABORATORY DATA: White blood cell count 3.5, hemoglobin 10.9, hematocrit 32.3, platelets 136. Sodium 142, potassium 3.7, chloride 107, bicarb 25, BUN 14, creatinine 2.66. Urinalysis, no bacteriuria. RADIOLOGY DATA: CT of the abdomen and pelvis demonstrates bilateral hydroureteronephrosis with a transition point in the lower pelvis just proximal to the bilateral ureterovesical junction at the level of the bilateral calcified pelvic masses. Other findings as per report. ASSESSMENT: An 89-year-old female with acute kidney injury and bilateral hydroureteronephrosis secondary to external compression by bilateral pelvic masses in the setting of stage III endometrial cancer, now concerning for metastatic disease. PLAN: I reviewed the patient's current clinical condition with her and her family in detail. I explained that the hydronephrosis is likely causing the acute kidney injury. I discussed options with the patient. After indications/risks/benefits/alternatives/possible outcomes were discussed with the patient in detail, she elected to proceed with bilateral ureteral stent placement and all indicated procedures. N.p.o. after midnight. This is planned for tomorrow morning. Job ID: [id number]
[2019-07-27 06:12] LABS: ALT (SGPT) 13 U/L (8-55); AST (SGOT) 15 U/L (5-34); Albumin 3.2 g/dL (3.4-4.8); Alkaline Phosphatase 45 U/L (40-110); Anion Gap 12 mmol/L (10-20); BUN (Urea Nitrogen) 39 mg/dL (9.8-20.1); Bilirubin, Total 0.4 mg/dL (0.2-1.2); Calc. Creatinine Clearance 18 mL/min (70-130); Calcium 8.1 mg/dL (7.8-10.44); Carbon Dioxide 24 mmol/L (23-31); Chloride 110 mmol/L (98-107); Estimated GFR-MDRD 17; Globulin 2.3 g/dL (2.4-3.5); Glucose 84 mg/dL (83-110); Potassium 3.7 mmol/L (3.5-5.1); Protein, Total 5.5 g/dL (6.0-8.3); Sodium 142 mmol/L (136-145)
[2019-07-27] MEDS: Levothyroxine Sodium 88 MCG TAB PO SCH (06:22)
[2019-07-27] MEDS ORDERED: Levofloxacin 500 mg/D5W 100 ml Premix Bag ONE (09:49)
[2019-07-27] MEDS ORDERED: Fentanyl 100 MCG/2 ML VIAL ONE (09:59)
[2019-07-27] MEDS ORDERED: Iothalamate Meglumine 60% 50 ML VIAL FS ONE (10:04)
--- NOTE | 2019-07-27 11:21 | PDOC.HOSPP ---
- Subjective Encounter Date: 07/27/19 Encounter Time: 08:00 Subjective: Expresses no complaint.. - Objective Vital Signs & Weight: Vital Signs (12 hours) Temp Pulse Resp BP Pulse Ox 07/27/19 07:29 64 16 92 L 07/27/19 07:21 98.4 F 63 18 140/73 92 L 07/27/19 06:17 98.9 F 70 18 114/84 07/27/19 01:29 81 16 91 L 07/27/19 00:00 98.6 F 70 18 154/67 H 97 Weight Weight 171 lb 1 oz I&O: 07/26/19 07/27/19 07/28/19 06:59 06:59 05:59 Intake Total 272 1200 Output Total 2360 2450 Balance 368 -1250 Result Diagrams: 07/26/19 04:01 07/27/19 04:36 Hospitalist ROS - Medication Medications: Active Medications Generic Name Dose Route Start Last Admin Trade Name Freq PRN Reason Stop Dose Admin Acetaminophen 650 mg 07/25/19 03:35 07/25/19 03:44 Tylenol PO 650 mg Q4H PRN Administration Headache/Fever/Mild Pain (1-3) Albuterol/Ipratropium 3 ml 07/25/19 07:00 07/27/19 07:29 Duoneb NEB 3 ml [id number] DAVID Administration Allopurinol 100 mg 07/25/19 09:00 07/26/19 08:39 Zyloprim PO 100 mg DAILY DAVID Administration Carvedilol 6.25 mg 07/25/19 09:00 07/26/19 21:35 Coreg PO 6.25 mg BID DAVID Administration Cyanocobalamin 1,000 mcg 07/25/19 09:00 07/26/19 08:39 Vitamin B-12 PO 1,000 mcg DAILY DAVID Administration Enoxaparin Sodium 30 mg 07/25/19 09:00 07/26/19 08:39 Lovenox SC 30 mg 09 DAVID Administration Ferrous Sulfate 325 mg 07/25/19 09:00 07/26/19 08:39 Feosol PO 325 mg DAILY DAVID Administration Gabapentin 300 mg 07/25/19 21:00 07/26/19 21:35 Neurontin PO 300 mg HS DAVID Administration Guaifenesin/Dextromethorphan 15 ml 07/25/19 03:35 07/27/19 00:15 Robitussin Dm PO 15 ml Q4H PRN Administration Cough Sodium Chloride 1,000 mls @ 100 mls/hr 07/25/19 10:45 07/27/19 01:36 Normal Saline 0.9% IV Not Given .Q10H DAVID Levothyroxine Sodium 88 mcg 07/25/19 06:00 07/27/19 06:22 Synthroid PO 88 mcg 0600 DAVID Administration Magnesium Oxide 250 mg 07/25/19 09:00 07/26/19 08:39 Magnesium Oxide PO 250 mg DAILY DAVID Administration Nifedipine 60 mg 07/26/19 09:00 07/26/19 08:39 Procardia Xl PO 60 mg DAILY DAVID Administration Pantoprazole Sodium 40 mg 07/25/19 09:00 07/26/19 08:39 Protonix PO 40 mg DAILY DAVID Administration Rosuvastatin Calcium 20 mg 07/25/19 21:00 07/26/19 21:35 Crestor PO 20 mg HS DAVID Administration Trazodone HCl 50 mg 07/25/19 01:22 07/26/19 21:39 Desyrel PO 50 mg HS PRN Administration Insomnia - Exam General Appearance: NAD Neck: supple, no JVD Heart: RRR Respiratory: CTAB Gastrointestinal: soft Extremities: no edema Neurological: no focal deficits Psychiatric: A&O x 3 Hosp A/P (1) Pelvic mass in female Code(s): R19.00 - INTRA-ABD AND PELVIC SWELLING, MASS AND LUMP, UNSP SITE Status: Acute Plan: Seen by oncology (2) Liver metastases Code(s): C78.7 - SECONDARY MALIG NEOPLASM OF LIVER AND INTRAHEPATIC BILE DUCT Status: Acute Plan: as abobe. (3) Acute worsening of stage 3 chronic kidney disease Code(s): N18.3 - CHRONIC KIDNEY DISEASE, STAGE 3 (MODERATE) Status: Acute Plan: Renal function unchanged.. (4) Hypertensive urgency Code(s): I16.0 - HYPERTENSIVE URGENCY Status: Acute Plan: BP controlled.. (5) Shortness of breath Code(s): R06.02 - SHORTNESS OF BREATH Status: Acute Plan: resolved.. (6) CAD (coronary artery disease) Code(s): I25.10 - ATHSCL HEART DISEASE OF [place] CORONARY ARTERY W/O ANG PCTRS Status: Chronic (7) Dyslipidemia Code(s): E78.5 - HYPERLIPIDEMIA, UNSPECIFIED Status: Chronic (8) Hypothyroidism Code(s): E03.9 - HYPOTHYROIDISM, UNSPECIFIED Status: Chronic (9) Bilateral hydronephrosis Code(s): N13.30 - UNSPECIFIED HYDRONEPHROSIS Status: Acute Plan: For stent placement.. - Plan F/u with , Oncology.. Continue current management..
--- NOTE | 2019-07-27 11:21 | RAD ---
XR IVP Retrograde History: Stent placement bilateral Comparison: CT Stone protocol July 25, 2019 Findings: Single spot image demonstrates bilateral double-J ureteral stents in good position. Marked dilatation of the renal collecting systems and ureters. Impression: Satisfactory position of bilateral double-J ureteral stents.
--- NOTE | 2019-07-27 11:53 | PRG ---
DATE OF SERVICE: 07/27/2019 SERVICE: Nephrology. SUBJECTIVE: An 89-year-old female with known history of uterine cancer, admitted with worsening shortness of breath and generalized ill feeling. Found to have acute renal failure. Further evaluation revealed bilateral hydronephrosis. The patient is here for stent placement for palliation later today. No new problem. OBJECTIVE: VITAL SIGNS: Temperature 98.4, pulse 63, respiratory rate 18, SpO2 of 92 on room air, and blood pressure is 140/73. GENERAL: Elderly female, in no distress. Afebrile. Anicteric. Acyanotic. HEENT: Normocephalic and atraumatic. Oral mucosa is moist. CARDIOVASCULAR: Regular rhythm and rate with normal heart sounds 1 and 2. RESPIRATORY: Fair air entry bilaterally with a few transmitted breath sounds. GI: Full, soft, nontender, and nondistended with normal bowel sounds. EXTREMITIES: Grossly normal looking and atraumatic with no edema or erythema. CHEMICAL PACKAGER: Conscious, alert, oriented x3 with appropriate mental status. DIAGNOSTIC DATA: CMP today showed sodium 142, potassium 3.7, chloride 110, CO2 of 24, BUN 39, creatinine 2.59, calcium 8.1, total protein 5.5, and albumin 3.2. ASSESSMENT: 1. Acute kidney injury: Due to volume depletion as well as obstructive uropathy. Creatinine has improved with fluid therapy; however, seems to have plateaued. 2. 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 The patient is here for stent placement today. 3. Hypertension: Control is better. 4. Chronic kidney disease, stage 3. 5. Endometrial cancer with metastasis. PLAN: 1. We will discontinue normal saline at this point. We will monitor for postobstruction diuresis and we will restart IV fluid if indicated by that time. 2. We will monitor electrolytes as well as renal function and address as needed. Continue nifedipine for hypertension. 3. Avoid nephrotoxic agent including diuretics and DWIGHT karina. Job ID: [id number]
--- NOTE | 2019-07-27 11:55 | OP ---
DATE OF PROCEDURE: 07/27/2019 RESOURCE AGENT: None. PREOPERATIVE DIAGNOSES: 1. Bilateral hydroureteronephrosis. 2. Likely recurrent uterine cancer. 3. Acute kidney injury. POSTOPERATIVE DIAGNOSES: 1. Bilateral hydroureteronephrosis. 2. Likely recurrent uterine cancer. 3. Acute kidney injury. PROCEDURE PERFORMED: Bilateral ureteral stent placement. ANESTHESIA: LMA anesthesia. COMPLICATIONS: None. FLUID: See Anesthesia record. ESTIMATED BLOOD LOSS: Minimal. SPECIMENS: None. POSTPROCEDURE STATUS: Satisfactory. INDICATIONS FOR PROCEDURE: Ms. Michaud is an 89-year-old female with history of stage III uterine cancer. The patient presented with hypertensive urgency as well as shortness of breath. She was found to have acute kidney injury. A renal ultrasound demonstrated bilateral hydronephrosis. She had a CT scan performed, which demonstrated bilateral hydroureteronephrosis down to the low pelvis, at which point there were two separate calcified masses within the pelvis. She also had some periaortic lymphadenopathy and an enlarging mass in the liver. This collectively is concerning for recurrent uterine cancer. After indications/risks/benefits/alternatives/possible outcomes were discussed with the patient in detail, she elected to proceed with bilateral ureteral stent placement and all indicated procedures. DESCRIPTION OF PROCEDURE: The patient was taken to the operating room, and after successful induction of LMA anesthesia, her genitalia was prepped and draped in usual sterile fashion. A time-out was performed. Following which, a 22-Bolivian rigid cystoscope with obturator in place was advanced into the patient's bladder. Complete cystoscopy was performed with a 30-degree cystoscope and was unremarkable. The left ureteral orifice was identified. It was cannulated with a Sensor wire, which was advanced up and curled within the left renal pelvis. An open-ended ureteral catheter was placed over this up to the level of the left ureteropelvic junction. Then, the wire was removed. A retrograde pyelogram was performed with a 50:50 mix of Isovue contrast and saline. The ureter was extremely tortuous. There was [id number] hydroureteronephrosis. We were able to manipulate the open-ended catheter up into the left renal pelvis to help straighten out the ureter somewhat. The wire was replaced over the wire. A 6-Bolivian x 26 cm double-J ureteral stent was placed, and upon wire removal, a good curl was achieved proximally within the left renal pelvis and distally within the bladder. The patient's bladder was drained. An identical procedure was then performed on the patient's right side. Right ureter and kidney were slightly less hydronephrotic; however, there was moderate hydroureteronephrosis. An identical size stent was placed successfully. The patient's bladder was drained. She tolerated the procedure well, was awoken from anesthesia and transferred to the PACU in satisfactory condition. Job ID: [id number]
[2019-07-27] MEDS ORDERED: PROPOFOL 200 MG/20 ML VIAL ONE (12:16)
[2019-07-27] MEDS ORDERED: Ondansetron PF 4 MG/2 ML Vial ONE (12:16)
[2019-07-27] MEDS ORDERED: Lidocaine 1% PF 5 ML VIAL ONE (12:16)
[2019-07-27] MEDS: Allopurinol 100 MG TAB PO SCH (12:36)
[2019-07-27] MEDS: Carvedilol 6.25 MG TAB PO SCH ×2 (12:36→20:18)
[2019-07-27] MEDS: NIFEdipine XL 60 MG TAB PO SCH (12:36)
[2019-07-27] MEDS: Ferrous Sulfate 325 MG TAB PO SCH (12:37)
[2019-07-27] MEDS: Cyanocobalamin (Vitamin B-12) 1,000 MCG TAB PO SCH (12:37)
[2019-07-27] MEDS: Magnesium Oxide 250 MG TAB PO SCH (12:38)
[2019-07-27] MEDS: Enoxaparin Sodium 30 MG/0.3 ML SYRINGE SC SCH (12:38)
[2019-07-27] MEDS: Rosuvastatin 20 MG TAB PO SCH (20:18)
[2019-07-27] MEDS: Gabapentin 300 MG CAP PO SCH (20:18)
[2019-07-28] MEDS: Levothyroxine Sodium 88 MCG TAB PO SCH (05:38)
[2019-07-28] MEDS: Guaifenesin DM 100-10/5 ML UDCUP PO PRN (05:39)
[2019-07-28 06:57] LABS: Anion Gap 13 mmol/L (10-20); BUN (Urea Nitrogen) 28 mg/dL (9.8-20.1); Calc. Creatinine Clearance 22 mL/min (70-130); Calcium 8.7 mg/dL (7.8-10.44); Carbon Dioxide 27 mmol/L (23-31); Chloride 110 mmol/L (98-107); Estimated GFR-MDRD 22; Glucose 86 mg/dL (83-110); Potassium 3.4 mmol/L (3.5-5.1); Sodium 147 mmol/L (136-145)
[2019-07-28] MEDS ORDERED: Lactated Ringer's 1,000 ML IV SCH (09:15)
[2019-07-28] MEDS: Magnesium Oxide 250 MG TAB PO SCH (09:21)
[2019-07-28] MEDS: Carvedilol 6.25 MG TAB PO SCH (09:21)
[2019-07-28] MEDS: Ferrous Sulfate 325 MG TAB PO SCH (09:21)
[2019-07-28] MEDS: NIFEdipine XL 60 MG TAB PO SCH (09:22)
[2019-07-28] MEDS: Allopurinol 100 MG TAB PO SCH (09:22)
[2019-07-28] MEDS: Enoxaparin Sodium 30 MG/0.3 ML SYRINGE SC SCH (09:23)
[2019-07-28] MEDS: Cyanocobalamin (Vitamin B-12) 1,000 MCG TAB PO SCH (09:23)
[2019-07-28] MEDS ORDERED: Potassium Chloride 20 MEQ TAB PO SCH (10:00)
[2019-07-28 11:28] VITALS: BP 159/67; TEMP 98.1
--- NOTE | 2019-07-28 12:13 | PDOC.HOSPP ---
- Subjective Encounter Date: 07/28/19 Encounter Time: 11:00 Subjective: Expresses no complaint. - Objective Vital Signs & Weight: Vital Signs (12 hours) Temp Pulse Resp BP BP BP BP 07/28/19 11:26 98.1 F 61 16 159/67 H 07/28/19 11:06 76 12 07/28/19 09:22 61 163/72 H 07/28/19 09:21 168/74 H 07/28/19 08:03 98.4 F 61 16 163/72 H 07/28/19 07:47 72 16 07/28/19 04:04 18 07/28/19 03:55 98.4 F 62 18 133/59 L Pulse Ox 07/28/19 11:26 92 L 07/28/19 11:06 07/28/19 09:22 07/28/19 09:21 07/28/19 08:03 92 L 07/28/19 07:47 07/28/19 04:04 94 L 07/28/19 03:55 88 L Weight Weight 165 lb I&O: 07/27/19 07/28/19 07/29/19 07:59 06:59 06:59 Intake Total Output Total Balance Result Diagrams: 07/26/19 04:01 07/28/19 05:16 Hospitalist ROS - Medication Medications: Active Medications Generic Name Dose Route Start Last Admin Trade Name Freq PRN Reason Stop Dose Admin Acetaminophen 650 mg 07/25/19 03:35 07/25/19 03:44 Tylenol PO 650 mg Q4H PRN Administration Headache/Fever/Mild Pain (1-3) Albuterol/Ipratropium 3 ml 07/25/19 07:00 07/28/19 11:06 Duoneb NEB 3 ml [id number] DAVID Administration Allopurinol 100 mg 07/25/19 09:00 07/28/19 09:22 Zyloprim PO 100 mg DAILY DAVID Administration Carvedilol 6.25 mg 07/25/19 09:00 07/28/19 09:21 Coreg PO 6.25 mg BID DAVID Administration Cyanocobalamin 1,000 mcg 07/25/19 09:00 07/28/19 09:23 Vitamin B-12 PO 1,000 mcg DAILY DAVID Administration Enoxaparin Sodium 30 mg 07/25/19 09:00 07/28/19 09:23 Lovenox SC 30 mg 0900 DAVID Administration Ferrous Sulfate 325 mg 07/25/19 09:00 07/28/19 09:21 Feosol PO 325 mg DAILY DAVID Administration Gabapentin 300 mg 07/25/19 21:00 07/27/19 20:18 Neurontin PO 300 mg HS DAVID Administration Guaifenesin/Dextromethorphan 15 ml 07/25/19 03:35 07/28/19 05:39 Robitussin Dm PO 15 ml Q4H PRN Administration Cough Levothyroxine Sodium 88 mcg 07/25/19 06:00 07/28/19 05:38 Synthroid PO 88 mcg 0600 DAVID Administration Magnesium Oxide 250 mg 07/25/19 09:00 07/28/19 09:21 Magnesium Oxide PO 250 mg DAILY DAVID Administration Nifedipine 60 mg 07/26/19 09:00 07/28/19 09:22 Procardia Xl PO 60 mg DAILY DAVID Administration Pantoprazole Sodium 40 mg 07/25/19 09:00 07/28/19 09:22 Protonix PO 40 mg DAILY DAVID Administration Rosuvastatin Calcium 20 mg 07/25/19 21:00 07/27/19 20:18 Crestor PO 20 mg HS DAVID Administration Trazodone HCl 50 mg 07/25/19 01:22 07/26/19 21:39 Desyrel PO 50 mg HS PRN Administration Insomnia - Exam General Appearance: NAD Neck: no JVD Heart: RRR Respiratory: CTAB Gastrointestinal: soft Extremities: 2+ LE edema Neurological: no focal deficits Psychiatric: normal affect Hosp A/P (1) Pelvic mass in female Code(s): R19.00 - INTRA-ABD AND PELVIC SWELLING, MASS AND LUMP, UNSP SITE Status: Acute Plan: Seen by Oncology.. Patient refuses chemotherapy.. Considering home hospice.. (2) Liver metastases Code(s): C78.7 - SECONDARY MALIG NEOPLASM OF LIVER AND INTRAHEPATIC BILE DUCT Status: Acute (3) Acute worsening of stage 3 chronic kidney disease Code(s): N18.3 - CHRONIC KIDNEY DISEASE, STAGE 3 (MODERATE) Status: Acute (4) Hypertensive urgency Code(s): I16.0 - HYPERTENSIVE URGENCY Status: Acute (5) CAD (coronary artery disease) Code(s): I25.10 - ATHSCL HEART DISEASE OF [place] CORONARY ARTERY W/O ANG PCTRS Status: Chronic (6) Dyslipidemia Code(s): E78.5 - HYPERLIPIDEMIA, UNSPECIFIED Status: Chronic (7) Hypothyroidism Code(s): E03.9 - HYPOTHYROIDISM, UNSPECIFIED Status: Chronic (8) Bilateral hydronephrosis Code(s): N13.30 - UNSPECIFIED HYDRONEPHROSIS Status: Acute Plan: s/p ureteral stents.. - Plan Patient refuses chemotherapy.. Palliative care conlted.. [facility].
--- NOTE | 2019-07-28 13:24 | PDOC.MOPN ---
Interval History: she feels well, she would like to go home, she is eating and ambulating - Vital Signs Vital Signs: Vital Signs (12 hours) Temp Pulse Resp BP BP BP BP 07/28/19 11:26 98.1 F 61 16 159/67 H 07/28/19 11:06 76 12 07/28/19 09:22 61 163/72 H 07/28/19 09:21 168/74 H 07/28/19 08:03 98.4 F 61 16 163/72 H 07/28/19 07:47 72 16 07/28/19 04:04 18 07/28/19 03:55 98.4 F 62 18 133/59 L Pulse Ox 07/28/19 11:26 92 L 07/28/19 11:06 07/28/19 09:22 07/28/19 09:21 07/28/19 08:03 92 L 07/28/19 07:47 07/28/19 04:04 94 L 07/28/19 03:55 88 L Weight Weight 165 lb - Physical Exam General: Alert HEENT: Atraumatic Lungs: Clear to auscultation Cardiovascular: Regular rate Abdomen: Normal bowel sounds, Soft Extremities: No clubbing Neurological: Normal gait Psych/Mental Status: Mental status NL - Labs Result Diagrams: 07/26/19 04:01 07/28/19 05:16 Lab results: Laboratory Results - last 24 hr 07/28/19 05:16: Sodium 147 H, Potassium 3.4 L, Chloride 110 H, Carbon Dioxide 27 , Anion Gap 13, BUN 28 H, Creatinine 2.11 H, Estimated GFR (MDRD) 22, Glucose 86 , Calcium 8.7 A/P - Problem (1) Acute worsening of stage 3 chronic kidney disease Current Visit: Yes Code(s): N18.3 - CHRONIC KIDNEY DISEASE, STAGE 3 (MODERATE ) Status: Acute (2) Bilateral hydronephrosis Current Visit: Yes Code(s): N13.30 - UNSPECIFIED HYDRONEPHROSIS Status: Acute (3) Liver metastases Current Visit: Yes Code(s): C78.7 - SECONDARY MALIG NEOPLASM OF LIVER AND INTRAHEPATIC BILE DUCT Status: Acute (4) Pelvic mass in female Current Visit: Yes Code(s): R19.00 - INTRA-ABD AND PELVIC SWELLING, MASS AND LUMP, UNSP SITE Status: Acute (5) Shortness of breath Current Visit: Yes Code(s): R06.02 - SHORTNESS OF BREATH Status: Acute - Plan Plan: 1. d/c today if ok with primary team 2. f/u this week for labs including Cr 3. we had a long talk about her prognosis, she understands it is poor but that her kidneys are now working and she may have good QOL for a sometime. we did discuss hospice and code status and she will think about these things 4. palliative care to discuss DNAR and options
--- NOTE | 2019-07-28 13:40 | PRG ---
DATE OF SERVICE: 07/28/2019 SERVICE: Nephrology. SUBJECTIVE: An 89-year-old female admitted due to worsening shortness of breath, associated with nausea and ill feeling for several days. Nephrology is following the patient for [id number] renal failure. The patient was found to have bilateral ureteral dilatation and is status post stent placement bilaterally. She is feeling better and desires to go home. OBJECTIVE: VITAL SIGNS: Temperature 98.1, pulse 61, respiratory rate 16, SpO2 of 92 on room air, and blood pressure is 159/67. GENERAL: Elderly female, in no distress. Afebrile. Anicteric. Acyanotic. HEENT: Normocephalic and atraumatic. Oral mucosa is moist. CARDIOVASCULAR: Regular rhythm and rate with normal heart sounds 1 and 2. RESPIRATORY: Fair air entry bilaterally with no obvious crackle or rhonchi or use of accessory muscles. GI: Full, soft, nontender, and nondistended with normal bowel sounds. EXTREMITIES: Grossly normal looking and atraumatic with no obvious edema or erythema. DIAGNOSTIC DATA: BMP showed sodium 147, potassium 3.4, chloride 110, CO2 of 27, BUN 28, creatinine 2.11, and calcium 8.7. Of note, on admission, creatinine was 2.55, which went up to a peak of 2.82. ASSESSMENT: 1. Xzxwh-rb-huemgar renal failure: Due to volume depletion and obstructive uropathy. 2. The patient is status post bilateral stent placement. Creatinine is trending downwards. 3. Obstructive uropathy: The patient is status post stent placement. 4. Hypertension. 5. Chronic kidney disease, stage 3. 6. Endometrial cancer with metastasis. PLAN: Discontinue IV fluid. [place] oral intake advised. Replete serum potassium with potassium chloride. The patient is stable and can be discharged from Nephrology point of view. However, we need to avoid nephrotoxic agent including diuretics and DWIGHT karina. Repeat BMP in 1 week is recommended. The patient can follow up in the office in 7 to 10 days. Other treatment as per Oncology and Urology. Job ID: [id number]
--- NOTE | 2019-07-29 14:02 | DIS ---
DATE OF ADMISSION: 07/24/2019 DATE OF DISCHARGE: 07/28/2019 ADMITTING DIAGNOSES: Primary diagnosis: Congestive heart failure. Secondary diagnoses: Status post pacemaker placement, coronary artery disease, hypertension, dyslipidemia, hypothyroidism, gout, chronic obstructive pulmonary disease, endometrial cancer. DISCHARGE DIAGNOSES: Primary diagnosis: Metastatic endometrial cancer with bilateral hydroureteronephrosis. Secondary diagnoses: Status post pacemaker placement, coronary artery disease, hypertension, dyslipidemia, hypothyroidism, gout, chronic obstructive pulmonary disease, endometrial cancer. CONSULTANTS: 1. Dr. Qureshi. 2. Dr. Bacon. 3. Dr. Fuentes. 4. Dr. Kim. PROCEDURES: Retrograde pyelogram, echocardiogram, abdomen and pelvis CT, kidney ultrasound, chest x-ray, ureteral stent placement. COURSE OF HOSPITALIZATION: Uncomplicated. The patient was found to be terminally ill. She was seen by Oncology. She refused chemotherapy. She is being discharged home. She is contemplating home hospice. DISCHARGE MEDICATIONS: Please see discharge medication reconciliation sheet. For today's physical examination, please refer to patient's medical record progress note section. She is to follow up with Oncology. FOLLOWUP: The patient is to follow up with Dr. Kim. DISCHARGE TIME: 32 minutes. Job ID: [id number]
--- NOTE | 2019-07-30 03:58 | PQF ---
[employer] Managing Member Crystal Reports Winform ViewerSUZI WOODRUFF YADI KENNEDY [id number] [facility] [id number] CLINICAL DOCUMENTATION CLARIFICATION FORM: POST DISCHARGE Addendum to original discharge summary date: _NO CHF Late entry note date: __ DATE: 07/30/2019 ATTN: YADI KENNEDY Please exercise your independent, professional judgment in responding to the clarification form. Clinical indicators are provided on the bottom of this form for your review Please check appropriate box(s): HEART FAILURE: A. TYPE: [ ] Systolic / HFrEF [ ] Diastolic / HFpEF [ ] Combined Systolic / Diastolic B. ACUITY [ ] Acute [ ] Acute on Chronic [ ] Chronic [ ] Other diagnosis [ ] Unable to determine In addition, please specify: Present on Admission (POA): [ ] Yes [ ] No [ ] Unable to determine For continuity of documentation, please document condition throughout progress notes and discharge summary. Thank You. CLINICAL INDICATORS - SIGNS / SYMPTOMS / LABS Ejection Fraction =_50-55_ % SOB and HTN urgency - Documented in H&P on 07/25 by Aniceto Miles New onset of CHF exacerbation - Documented in H&P on 07/25 by Aniceto Miles BNP level 969.5 on 07/25 - Documented in Laboratory results DANIEL - Documented in Consultation note on 07/25 by Samantha Qureshi RISKS: History of CAD - Documented in H&P on 07/25 by Aniceto Miles HTN - Documented in H&P on 07/25 by Aniceto Miles CKD 3 - Documented in Consultation note on 07/25 by Samantha Qureshi TREATMENTS: Echocardiogram Cardiology consultation Lasix 20 mg - Documented in Medication report [employer] Managing Member Crystal Reports Winform Viewer (This form is maintained as a part of the permanent medical record) 2014 [email or web address]. All Rights Reserved [email or web address] [not provided] [email or web address]
== END 2019-07-28 15:50 | disposition home or self-care (01) | DRG 660 ==
LOC: SCSER 16:12 → 2NO 20:43 → ONC 07-27 17:34
PROVIDERS: ADMIT Internal Medicine; ATTEND Internal Medicine
PROC: 0T788DZ Dilation of Bilateral Ureters with Intraluminal Device, Via Natural or Artificial Opening Endoscopic (ICD-10-PCS; principal; 2019-07-27)
PROC: BT141ZZ Fluoroscopy of Kidneys, Ureters and Bladder using Low Osmolar Contrast (ICD-10-PCS; 2019-07-27)
DX: N17.9 Acute kidney failure, unspecified (principal); C78.7 Secondary malignant neoplasm of liver and intrahepatic bile duct; I13.0 Hypertensive heart and chronic kidney disease with heart failure and stage 1 through stage 4 chronic kidney disease, or unspecified chronic kidney disease; Z95.0 Presence of cardiac pacemaker; N13.30 Unspecified hydronephrosis; Z95.5 Presence of coronary angioplasty implant and graft; E78.5 Hyperlipidemia, unspecified; E03.9 Hypothyroidism, unspecified; M10.9 Gout, unspecified; Z79.899 Other long term (current) drug therapy; Z87.891 Personal history of nicotine dependence; Z90.710 Acquired absence of both cervix and uterus; N18.3 Chronic kidney disease, stage 3 (moderate); I16.0 Hypertensive urgency; I25.10 Atherosclerotic heart disease of native coronary artery without angina pectoris; C54.1 Malignant neoplasm of endometrium; J44.9 Chronic obstructive pulmonary disease, unspecified; I50.9 Heart failure, unspecified; R59.1 Generalized enlarged lymph nodes
CPT/HCPCS: 36415; 71046; 74176; 74420; 76770; 80048; 80053; 80069; 81001; 82550; 82570; 83605; 83690; 83880; 84156; 84300; 84443; 84484; 84540; 85025; 93005; 93306; 93798; 94640; 96374; 96375; C1758; J0360; J1650; J1940; J1956; J2001; J2405; J2704; J3010; J7620

== ENCOUNTER 2019-12-01 07:05 | Inpatient (IN) | payer MEDICARE ==
[2019-12-01] MEDS ORDERED: Ondansetron PF 4 MG/2 ML Vial ONE (07:47)
[2019-12-01] MEDS ORDERED: Morphine 4 MG/ML VIAL ONE (07:47)
[2019-12-01 07:53] LABS: #Eosinphils 0.1 thou/uL (0.0-0.7); #Lymphocytes 0.5 thou/uL (1.20-3.40); #Monocytes 0.4 thou/uL (0.11-0.59); #Neutrophils 3.4 thou/uL (1.40-6.50); %Basophils 0.8 % (0.0-1.0); %Eosinophils 2.9 % (0.0-10.0); %Lymphocytes 11.8 % (21.0-51.0); %Monocytes 9.5 % (0.0-10.0); Mean Corpuscular HGB CONC 33.7 g/dL (32.0-36.0); Mean Corpuscular Hemoglobin 33.1 pg (27.0-31.0); Mean Corpuscular Volume 98.4 fL (78.0-98.0); Mean Platelet Volume 7.7 fL (7.4-10.4); Platelet Count 143 thou/uL (130-400); RBC Distribution Width 12.5 % (11.5-14.5); Red Blood Cell (RBC) Count 3.33 mill/uL (4.20-5.40); White Blood Cell (WBC) Count 4.5 thou/uL (4.8-10.8)
[2019-12-01 08:13] LABS: ALT (SGPT) 14 U/L (8-55); AST (SGOT) 19 U/L (5-34); Albumin 3.8 g/dL (3.4-4.8); Alkaline Phosphatase 57 U/L (40-110); Anion Gap 13 mmol/L (10-20); BUN (Urea Nitrogen) 48 mg/dL (9.8-20.1); Bilirubin, Total 0.4 mg/dL (0.2-1.2); Calc. Creatinine Clearance 0 mL/min (70-130); Calcium 8.8 mg/dL (7.8-10.44); Carbon Dioxide 28 mmol/L (23-31); Chloride 102 mmol/L (98-107); Estimated GFR-MDRD 16; Globulin 2.4 g/dL (2.4-3.5); Glucose 106 mg/dL (83-110); Potassium 4.6 mmol/L (3.5-5.1); Protein, Total 6.2 g/dL (6.0-8.3); Sodium 138 mmol/L (136-145)
[2019-12-01 08:25] LABS: Bilirubin Negative (Negative); Blood, Urine 3+ (Negative); Clarity Turbid (Clear); Glucose, Urine (Dipstick) Normal (Negative); Leukocyte 25 Leu/uL (Negative); Nitrite Negative (Negative); Protein, Urine (Dipstick) 50 mg/dL (Neg-Trace); RBC/HPF Greater than 50 HPF (0-3); Squamous Epithelial None Seen HPF (0-3); Urobilinogen Normal mg/dL (Less than 2)
[2019-12-01 08:47] LABS: Bacteria/HPF Rare-Few HPF (None Seen)
--- NOTE | 2019-12-01 09:07 | CT ---
CT ABDOMEN NONCONTRAST CT PELVIS NONCONTRAST: (Urolithiasis protocol) DATE: 12/01/2019 HISTORY: 89-year-old female with history of endometrial cancer or cervical cancer presents with urinary retent ion and dysuria COMPARISON: 07/25/2019 TECHNIQUE: IV injection of iodinated contrast media: None Oral contrast media: None FINDINGS: Other than for urolithiasis, the lack of IV and oral contrast limits the evaluation. Previously demonstrated small bilateral pleural effusions are no longer present. No consolidation at lung bases. No pneumoperitoneum. New finding of 1.3 x 1 cm noncalcified pulmonary nodule at anterolateral basilar segment right lower lobe. New finding of additional tiny noncalcified pulmonary nodules bases of bilateral lower lobes, a few m illimeters in size each. No major interval change in the approximately 6 x 4.5 x 4.5 cm mass, solid, in left lobe of liver. No hepatosplenomegaly. Bilateral ureteral stents have been placed since the prior CT. Urinary bladder is nearly empty. Distal portion of left ureteral stent is apparently within the empty urinary bladder. The distal portion of the right ureteral stent is within a 3.5 x 3 x 3.5 cm focal fluid collection in the right pelvic cavity located lateral and superior to the empty bladder. It is presumed that this represents the lateral dog ear extension of the urinary bladder. Despite the presence of the stent, there continues to be severe right hydronephrosis. The previously severe right hydroureter has minimally improved. There is still moderate to severe right hydroureter. There has been mild interval improvement in the previously severe left hydroureteronephrosis, and cur rently there is moderate-severe left hydronephrosis. There continues to be moderate left hydroureter, which has improved. The previously demonstrated 3.3 cm right pelvic solid mass is now 4 x 4 by 4.5 cm. The previously 2.6 cm left pelvic mass has grown to 4 x 4.5 x 6 cm. Those masses envelop distal portions of the bilateral ureteral stents. Severe lumbar spondylosis. No small bowel dilation. Descending and sigmoid colonic diverticulosis without diverticulitis. Nonspecific appearance of pancreas. No adrenal mass. Minimal free fluid in pelvis. No pneumoperitoneum. IMPRESSION: 1. Interval placement of bilateral ureteral stents. 2. No major interval change in the severe right hydronephrosis. 3. Mild interval improvement in the now moderate to severe left hydronephrosis. 4. Interval growth of the lateral to large intrapelvic neoplastic tumor masses obstructing the bilate ral distal ureters. 5. Urinary bladder is currently empty. 6) new multiple bilateral pulmonary metastases. 7) no major interval change in the hepatic mass. 8) severe lumbar spondylosis.
[2019-12-01] MEDS: Sodium Chloride 0.9% 1,000 ML IV SCH ×2 (12:32→22:44)
[2019-12-01 13:12] VITALS: BMI 27.6
[2019-12-01] MEDS ORDERED: Acetaminophen 325 MG TAB PO PRN (14:08)
[2019-12-01] MEDS ORDERED: traZODone HCl 50 MG TAB PO PRN (14:08)
[2019-12-01] MEDS ORDERED: cloNIDine 0.1mg/24 Hour PATCH TD PRN (14:08)
--- NOTE | 2019-12-01 16:12 | CON ---
DATE OF CONSULTATION: 12/01/2019 REASON FOR CONSULTATION: Hydronephrosis. CHIEF COMPLAINT: Unable to urinate. HISTORY OF PRESENT ILLNESS: This is an 89-year-old female, followed by Dr. Fuentes for history of stage IV cervical cancer with ureteral obstruction. She initially had stents placed in July and then was transitioned to metal resonance stents in October. She reports that overnight she became unable to urinate and developed significant suprapubic pain, prompting her to present to the emergency room here. A catheter was placed draining 1500 mL of dark urine. Her pain has resolved with the catheter. Her creatinine is as expected elevated, and a CT was checked just after placing the catheter, showing bilateral hydronephrosis. Urinalysis suggests infection, and she is being admitted to the hospitalist service for management. She tells me that she believes she has had catheters in the past, but recently has not had any difficulty voiding. She reports that the metal stents have not been uncomfortable and that she has not been having recurrent hematuria or dysuria. Currently, she denies chest pains, difficulty breathing, flank pain, nausea, vomiting, fevers, or chills. PAST MEDICAL HISTORY: Stage IV cervical cancer followed by Dr. Kim, hypertension, hyperlipidemia, hypothyroidism, and cardiac disease. SURGICAL HISTORY: Hysterectomy, ureteral stents as above. SOCIAL HISTORY: Lives with her , no substance abuse. MEDICATIONS: Reviewed. No pertinent urologic medications. REVIEW OF SYSTEMS: Ten-point review of systems performed, negative except as mentioned above. PHYSICAL EXAMINATION: GENERAL: No acute distress, conversant. HEENT: Head; normocephalic, atraumatic. NECK: Supple. Trachea midline. RESPIRATORY: Breathing unlabored. Symmetric chest expansion. HEART: Regular rate and rhythm. ABDOMEN: Soft, nontender, nondistended. : No flank tenderness. No CVA tenderness. Tam catheter draining normal-appearing urine with dark urine in the bag. SKIN: Warm and dry. EXTREMITIES: Without clubbing, cyanosis, or edema. Alert and oriented x3. PSYCHIATRIC: Normal mood and affect. LABORATORY DATA: White count 4.5, hemoglobin 11.0. Creatinine 2.81, which is up from baseline. Urinalysis 25 leukocyte esterase, negative nitrite. Urine culture pending. IMAGING: CT scan reviewed personally by me showing bilateral hydronephrosis with stents appearing to be in good position. ASSESSMENT AND PLAN: Bilateral hydronephrosis, urinary retention. Tam catheter has been placed, this will likely remain for several days to a week before void trial. The hydronephrosis is likely secondary to bladder outlet obstruction with reflux from the stents. I do not think any emergent therapy is necessary for this. We will watch her creatinine, and if it is improving over the next 24 to 48 hours, we will repeat a renal ultrasound to ensure resolution of the hydronephrosis. The patient will be discussed with Dr. Fuentes when he returns to service tomorrow. Job ID: [id number]
--- NOTE | 2019-12-01 17:47 | HP ---
CHIEF COMPLAINT: Urinary retention. HISTORY OF PRESENT ILLNESS: The patient is an 89-year-old female, who has a history of cervical cancer and recently placed bilateral ureteral stents, which were changed to metal stents in October, who presented to the emergency room because she was not able to void much since last night. Apparently, several attempts of voiding prior to last night were very limited in volume. She had some dysuria with that. She did not have any fever or chills. There was some pelvic pain involved since last night. She was examined in the emergency room and she had 1500 mL of urine drained after her Tam catheter was placed in, also it was noticed that her creatinine is significantly above her baseline and decision was made about hospitalization after the emergency room doctor contacted on-call urologist Dr. De La Fuente. She denies any other symptoms like chest pain, shortness of breath, or headache. PAST MEDICAL HISTORY: Positive for: 1. Hypothyroidism. 2. Coronary artery disease, status post placement of one stent. 3. Hyperlipidemia. 4. Hypertension. 5. Cervical malignancy, which was treated with surgery. PAST SURGICAL HISTORY: Hysterectomy. MEDICATIONS: 1. Allopurinol 100 mg once a day. 2. Carvedilol 6.25 mg once a day. 3. Clonidine 0.1 mg as needed. 4. Gabapentin 300 mg once a day. 5. Irbesartan 300 mg once a day. 6. Iron ER capsule one a day. 7. Levothyroxine 88 mcg once a day. 8. Magnesium 250 mg once a day. 9. Pantoprazole oral capsule 40 mg once a day. 10. Rosuvastatin 20 mg once a day. 11. Senna 8.6 mg tablets one tablet once a day as needed. 12. Trazodone 50 mg once a day. 13. Triamterene-hydrochlorothiazide half a tablet once a day. 14. Vitamin B12 1000 mcg once a day. PRIMARY CARE PHYSICIAN: Dr. Blackwood. ONCOLOGIST: Dr. Kim. SOCIAL HISTORY: She denies any alcohol intake, cigarette smoking, or illicit drug use. REVIEW OF SYSTEMS: Only symptoms which mentioned in HPI are positive, otherwise they are negative. PHYSICAL EXAMINATION: GENERAL: She is not in any distress during my visit. She is resting comfortably. VITAL SIGNS: Blood pressure is 158/70, pulse is 62, respirations 18, O2 saturation 94% on room air. Her temperature is 98.4. HEENT: Head is atraumatic and normocephalic. Eyes are PERRLA. Sclerae are nonicteric. Conjunctivae are palish. Oral mucosa is moist. NECK: Supple. LUNGS: Clear. HEART: S1, S2 normal. No S3. No S4. There is a 2/6 systolic murmur mostly audible at the left sternal border. ABDOMEN: Soft and nontender. Bowel sounds are present, no organomegaly. EXTREMITIES: No clubbing, cyanosis, or edema. NEUROLOGICAL: She is alert and oriented x4. There are no any motor or sensory deficits. Cranial nerves are intact. SKIN: No rash or erythema. Tam catheter is in. Urinary bladder draining slightly pinkish urine. LABORATORY DATA: Labs showed white count of 4.5, hemoglobin of 11.0, hematocrit 32.8, platelet count is 143,000. Normal electrolytes. BUN of 48, creatinine 2.81. The rest of chemistry is within normal limits. Urine showed turbid clarity, 50 of protein, 3+ of blood, rbc's greater than 50, 4-6 wbc's, and the rest is within normal limits. A CT of the abdomen and pelvis was done without contrast. It showed. 1. Interval placement of bilateral ureteral stents. 2. No major interval change in the severe right hydronephrosis. 3. Mild interval improvement in the now moderate to severe left hydronephrosis. 4. Interval growth of the lateral large intrapelvic neoplastic tumor mass is obstructing the bilateral distal ureters. 5. Urinary bladder is currently empty. 6. New multiple bilateral pulmonary metastasis. 7. No major interval change in the hepatic mass. 8. Severe lumbar spondylosis. IMPRESSION: 1. Urinary tract obstruction. 2. 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 3. 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 4. New multiple bilateral pulmonary metastasis. 5. Severe lumbar spondylosis. 6. Bilateral hydronephrosis, most likely secondary to neoplastic tumor mass. 7. Hyperlipidemia. 8. Coronary artery disease, status post stent placement x1, chronic, stable. 9. Hypertension. PLAN: Admission to Oncology floor. Full admission activities, bedrest, and bathroom privileges. IV 100 mL of normal saline per hour. Oncology consultation and consultation with Urology. She will be on heart healthy diet, renal diet. DVT prophylaxis with SCDs. Continue home medications. Followup BMP and CBC tomorrow. Job ID: [id number]
[2019-12-01] MEDS ORDERED: Gabapentin 300 MG CAP PO SCH (21:00)
[2019-12-01] MEDS ORDERED: Rosuvastatin 20 MG TAB PO SCH (21:00)
[2019-12-01] MEDS: Senokot 8.6 MG TAB PO PRN (21:53)
[2019-12-02 08:00] LABS: Anion Gap 6 mmol/L (10-20); BUN (Urea Nitrogen) 34 mg/dL (9.8-20.1); Calc. Creatinine Clearance 28 mL/min (70-130); Calcium 7.9 mg/dL (7.8-10.44); Carbon Dioxide 28 mmol/L (23-31); Chloride 108 mmol/L (98-107); Estimated GFR-MDRD 31; Glucose 90 mg/dL (83-110); Potassium 4.1 mmol/L (3.5-5.1); Sodium 138 mmol/L (136-145)
[2019-12-02 08:11] LABS: #Eosinphils 0.1 thou/uL (0.0-0.7); #Lymphocytes 0.6 thou/uL (1.20-3.40); #Monocytes 0.4 thou/uL (0.11-0.59); #Neutrophils 2.1 thou/uL (1.40-6.50); %Basophils 0.8 % (0.0-1.0); %Eosinophils 4.3 % (0.0-10.0); %Lymphocytes 19.5 % (21.0-51.0); %Monocytes 11.5 % (0.0-10.0); %Neutrophils 63.9 % (42.0-75.0); MDiff Complete? YES; Mean Corpuscular HGB CONC 34.1 g/dL (32.0-36.0); Mean Corpuscular Hemoglobin 33.5 pg (27.0-31.0); Mean Corpuscular Volume 98.5 fL (78.0-98.0); Platelet Count 106 thou/uL (130-400); Platelet Morphology Comment Appears Decreased; Polychromasia SLIGHT = 2-3 cells (100X) (0-2/hpf); RBC Distribution Width 12.3 % (11.5-14.5); Red Blood Cell (RBC) Count 2.69 mill/uL (4.20-5.40); White Blood Cell (WBC) Count 3.3 thou/uL (4.8-10.8)
[2019-12-02] MEDS ORDERED: Levothyroxine Sodium 88 MCG TAB PO SCH (09:00)
[2019-12-02] MEDS ORDERED: Carvedilol 6.25 MG TAB PO SCH (09:00)
[2019-12-02] MEDS ORDERED: Ferrous Sulfate 325 MG TAB PO SCH (09:00)
[2019-12-02] MEDS ORDERED: Allopurinol 100 MG TAB PO SCH (09:00)
[2019-12-02] MEDS ORDERED: Triamterene/Hydrochlorothiazide 37.5 mg/25 mg Tablet PO SCH (09:00)
[2019-12-02] MEDS ORDERED: Cyanocobalamin (Vitamin B-12) 1,000 MCG TAB PO SCH (09:00)
[2019-12-02] MEDS ORDERED: Amlodipine 5 MG TAB PO SCH (09:00)
[2019-12-02] MEDS ORDERED: Magnesium Oxide 250 MG TAB PO SCH (09:00)
[2019-12-02] MEDS ORDERED: Losartan 25 MG TAB PO SCH (09:00)
[2019-12-02] MEDS: Senokot 8.6 MG TAB PO PRN (09:43)
[2019-12-02] MEDS ORDERED: Polyethylene Glycol 3350 17 GM Packet PO PRN (09:53)
--- NOTE | 2019-12-02 09:53 | PRG ---
DATE OF SERVICE: 12/02/2019 CHIEF COMPLAINT: Urinary retention. SUBJECTIVE: No problems overnight. Catheter has been draining well. She denies any discomfort with the catheter. She denies dysuria, suprapubic pain, flank pain, nausea, vomiting, fevers, or chills. OBJECTIVE: VITAL SIGNS: Afebrile. Mild hypertension this morning. Otherwise, vitals stable. Good urine output. GENERAL: No acute distress, conversant. LUNGS: Unlabored breathing. Symmetric chest expansion. ABDOMEN: Soft, nontender, and nondistended. No CVA tenderness. No suprapubic tenderness. GENITOURINARY: Tam catheter in good position, draining clear urine. SKIN: Warm and dry. EXTREMITIES: No peripheral edema. NEUROLOGIC: Alert and oriented x3. LABORATORY DATA: Creatinine has improved to 1.58 today. ASSESSMENT AND PLAN: Hospital day 2, urinary retention causing bilateral hydronephrosis secondary to indwelling stents. She has responded appropriately with Tam catheter drainage. At this point, she can discharge as far as her urinary retention is concerned with Tam catheter likely for 1 to 2 weeks. She can follow up with her urologist, Dr. Fuentes, in that time frame for void trial. Please call with any questions. Job ID: [id number]
[2019-12-02] MEDS ORDERED: Bisacodyl 5 MG TAB PO PRN (09:55)
[2019-12-02 12:42] VITALS: BP 146/64; TEMP 98.5
--- NOTE | 2019-12-02 14:15 | PDOC.HOSPP ---
- Subjective Encounter Date: 12/02/19 Encounter Time: 14:12 Subjective: Ms. Michaud was seen today in follow-up of bladder outlet obstruction. she does not have any complaints. - Objective Vital Signs & Weight: Vital Signs (12 hours) Temp Pulse Resp BP BP Pulse Ox 12/02/19 12:00 98.5 F 60 16 146/64 H 95 12/02/19 09:44 159/70 H 12/02/19 09:41 67 159/70 H 12/02/19 08:00 98.2 F 67 16 159/70 H 91 L 12/02/19 04:35 98.8 F 60 20 134/65 94 L Weight Weight 156 lb 4 oz I&O: 12/01/19 12/02/19 12/03/19 06:59 06:59 06:59 Intake Total 360 1440 Output Total 1200 Balance -840 1440 Result Diagrams: 12/02/19 07:32 12/02/19 07:32 Hospitalist ROS - Medication Medications: Active Medications Generic Name Dose Route Start Last Admin Trade Name Freq PRN Reason Stop Dose Admin Allopurinol 100 mg 12/02/19 09:00 12/02/19 09:41 Zyloprim PO 100 mg DAILY DAVID Administration Amlodipine Besylate 2.5 mg 12/02/19 09:00 12/02/19 09:41 Norvasc PO 2.5 mg DAILY DAVID Administration Bisacodyl 5 mg 12/02/19 09:55 12/02/19 13:15 Dulcolax PO 5 mg DAILYPRN PRN Administration Constipation Carvedilol 6.25 mg 12/02/19 09:00 12/02/19 09:44 Coreg PO 6.25 mg DAILY DAVID Administration Cyanocobalamin 1,000 mcg 12/02/19 09:00 12/02/19 09:42 Vitamin B-12 PO 1,000 mcg DAILY DAVID Administration Ferrous Sulfate 325 mg 12/02/19 09:00 12/02/19 09:44 Feosol PO 325 mg DAILY DAVID Administration Gabapentin 300 mg 12/01/19 21:00 12/01/19 20:28 Neurontin PO 300 mg HS DAVID Administration Levothyroxine Sodium 88 mcg 12/02/19 09:00 12/02/19 09:41 Synthroid PO 88 mcg QAM DAVID Administration Losartan Potassium 100 mg 12/02/19 09:00 12/02/19 09:44 Cozaar PO 100 mg DAILY DAVID Administration Magnesium Oxide 250 mg 12/02/19 09:00 12/02/19 09:42 Magnesium Oxide PO 250 mg DAILY DAVID Administration Pantoprazole Sodium 40 mg 12/02/19 09:00 12/02/19 09:42 Protonix PO 40 mg DAILY DAVID Administration Polyethylene Glycol 17 gm 12/02/19 09:53 12/02/19 13:15 Miralax PO 17 gm DAILYPRN PRN Administration Constipation Rosuvastatin Calcium 20 mg 12/01/19 21:00 12/01/19 20:28 Crestor PO 20 mg HS DAVID Administration Senna 1 tab 12/01/19 14:08 12/02/19 09:43 Senokot PO 1 tab PRN PRN Administration Constipation Trazodone HCl 50 mg 12/01/19 14:08 12/01/19 21:53 Desyrel PO 50 mg HS PRN Administration Insomnia Triamterene/HCTZ 1 tab 12/02/19 09:00 12/02/19 09:43 Maxzide-25 PO 1 tab DAILY DAVID Administration - Exam Eye: PERRL Heart: RRR, no murmur, no gallops, no rubs, normal peripheral pulses Respiratory: CTAB, no wheezes, no rales, no ronchi, normal chest expansion Hosp A/P (1) Acute worsening of stage 3 chronic kidney disease Code(s): N18.3 - CHRONIC KIDNEY DISEASE, STAGE 3 (MODERATE) Status: Acute (2) Bladder outlet obstruction Code(s): N32.0 - BLADDER-NECK OBSTRUCTION Status: Acute (3) Bilateral hydronephrosis Code(s): N13.30 - UNSPECIFIED HYDRONEPHROSIS Status: Acute (4) CAD (coronary artery disease) Code(s): I25.10 - ATHSCL HEART DISEASE OF [place] CORONARY ARTERY W/O ANG PCTRS Status: Chronic - Plan * Acute kidney injury due to bladder outlet obstruction- improved * She is stable for discharge home with a loera * Cervical cancer- she has new pulmonary nodules- discussed with the patient- she plans to move up her appointment with Dr. Kim
--- NOTE | 2019-12-03 04:26 | DIS ---
DATE OF ADMISSION: 12/01/2019 DATE OF DISCHARGE: 12/02/2019 PRIMARY CARE PHYSICIAN: Javi Blackwood MD DISCHARGE DISPOSITION: Home. DISCHARGE DIAGNOSES: 1. Acute kidney injury. 2. Bladder outlet obstruction. 3. Cervical cancer. 4. Hypertension. 5. History of coronary artery disease. DISCHARGE MEDICATIONS: Include, 1. Hydrochlorothiazide/triamterene 25/37.5 daily. 2. Trazodone 50 mg at bedtime. 3. Senna 8.6 mg as needed. 4. Crestor 20 mg at bedtime. 5. Pantoprazole 40 mg daily. 6. Levothyroxine 88 mcg daily. 7. Irbesartan 300 mg daily. 8. Gabapentin 300 mg at bedtime. 9. Iron sulfate 325 mg daily. 10. Vitamin B12 of 1000 mcg daily. 11. Catapres patch 0.1 transdermal q.7 days. 12. Carvedilol 6.25 mg daily. 13. Amlodipine 2.5 mg p.o. daily. 14. Allopurinol 100 mg daily. 15. Tylenol 325 mg as needed. IMAGING DURING THE HOSPITAL STAY: The patient had a CT of the abdomen and pelvis, showing previously demonstrated bilateral pleural effusions were no longer present. There was a new finding of a 1.3 x 1 cm noncalcified pulmonary nodule at the anterior lateral basal segment of the right lower lobe. There is new finding of additional tiny noncalcified pulmonary nodules. There is no interval change in the solid mass of the lobe of the liver. Bilateral ureteral stents were placed since the previous CT and there were severe lumbar spinal stenosis and interval growth of the lateral large intrapelvic neoplastic tumor masses obstructing the bilateral distal ureters. CODE STATUS: Full code. ALLERGIES: NO KNOWN DRUG ALLERGIES. HOSPITAL COURSE: Ms. Michaud is a pleasant 89-year-old female, who came to the emergency room, noticing decreased urinary output. When she was evaluated in the ER, she was found to have an elevation in her creatinine as well. She was admitted for acute kidney injury. There was concern that she had worsening of the ureteral obstruction as a result of her cervical cancer. A CT scan was done. However, this was ruled out and it was found that she had actually a bladder outlet obstruction instead. She was seen by Dr. De La Fuente in the hospital and a Tam catheter was placed. She voided well Tam placement. Her renal function improved dramatically overnight. Her renal function improved to baseline much sooner than expected, in just 24 hours as opposed to several days originally anticipated. The Tam catheter will need to be in place for several weeks, at the end of which time, a voiding trial can be done. There is no evidence of infection of the urine. She was also found to have new pulmonary nodules, likely the result of metastatic disease from the cervical cancer. This information was communicated to the patient and she plans to follow up with Dr. Kim as soon as possible by moving up her already scheduled appointment date. The patient is subsequently being discharged home and also will need to follow up with Dr. Blackwood in 1 to 2 weeks. Job ID: [id number] [facility]
== END 2019-12-02 15:50 | disposition home or self-care (01) | DRG 683 ==
LOC: ERS 07:05 → ONC 09:54
PROVIDERS: ADMIT Internal Medicine; ATTEND Internal Medicine
DX: N17.9 Acute kidney failure, unspecified (principal); T83.89XA Other specified complication of genitourinary prosthetic devices, implants and grafts, initial encounter; N13.8 Other obstructive and reflux uropathy; C78.00 Secondary malignant neoplasm of unspecified lung; I25.10 Atherosclerotic heart disease of native coronary artery without angina pectoris; N32.0 Bladder-neck obstruction; C53.9 Malignant neoplasm of cervix uteri, unspecified; R91.1 Solitary pulmonary nodule; I12.9 Hypertensive chronic kidney disease with stage 1 through stage 4 chronic kidney disease, or unspecified chronic kidney disease; N18.3 Chronic kidney disease, stage 3 (moderate); N13.30 Unspecified hydronephrosis; Z95.5 Presence of coronary angioplasty implant and graft; Z90.710 Acquired absence of both cervix and uterus; M47.816 Spondylosis without myelopathy or radiculopathy, lumbar region; E78.5 Hyperlipidemia, unspecified; E03.9 Hypothyroidism, unspecified; R33.8 Other retention of urine
CPT/HCPCS: 36415; 51702; 74176; 80048; 80053; 81003; 81015; 85025; 96374; 96375; J2270; J2405

== ENCOUNTER 2019-12-04 11:59 | Emergency (ER) | payer MEDICARE ==
[2019-12-04 13:55] LABS: #Eosinphils 0.2 thou/uL (0.0-0.7); #Lymphocytes 0.6 thou/uL (1.20-3.40); #Monocytes 0.3 thou/uL (0.11-0.59); #Neutrophils 1.8 thou/uL (1.40-6.50); %Basophils 0.5 % (0.0-1.0); %Eosinophils 5.8 % (0.0-10.0); %Lymphocytes 20.4 % (21.0-51.0); %Neutrophils 64.2 % (42.0-75.0); Mean Corpuscular HGB CONC 34.3 g/dL (32.0-36.0); Mean Corpuscular Hemoglobin 33.2 pg (27.0-31.0); Mean Corpuscular Volume 96.8 fL (78.0-98.0); Mean Platelet Volume 7.3 fL (7.4-10.4); Platelet Count 148 thou/uL (130-400); RBC Distribution Width 12.1 % (11.5-14.5); Red Blood Cell (RBC) Count 3.31 mill/uL (4.20-5.40); White Blood Cell (WBC) Count 2.9 thou/uL (4.8-10.8)
[2019-12-04 14:11] LABS: ALT (SGPT) 14 U/L (8-55); AST (SGOT) 20 U/L (5-34); Albumin 3.8 g/dL (3.4-4.8); Alkaline Phosphatase 55 U/L (40-110); Anion Gap 12 mmol/L (10-20); BUN (Urea Nitrogen) 24 mg/dL (9.8-20.1); Bilirubin, Total 0.6 mg/dL (0.2-1.2); Calc. Creatinine Clearance 0 mL/min (70-130); Calcium 8.9 mg/dL (7.8-10.44); Carbon Dioxide 27 mmol/L (23-31); Chloride 104 mmol/L (98-107); Estimated GFR-MDRD 43; Globulin 2.4 g/dL (2.4-3.5); Glucose 95 mg/dL (83-110); Potassium 3.8 mmol/L (3.5-5.1); Protein, Total 6.2 g/dL (6.0-8.3); Sodium 139 mmol/L (136-145)
[2019-12-04] MEDS ORDERED: Iopamidol-370 76% 500 ML 1 ML ONE (15:29)
--- NOTE | 2019-12-04 15:51 | CT ---
Exam: Head CT without contrast HISTORY: Altered mental status. History of carcinosarcoma. COMPARISON: none FINDINGS: Hemorrhage: No intraparenchymal hemorrhage or extra-axial hematoma. Brain parenchyma: Cortical rodriguez-white matter differentiation is preserved. No mass effect or midline shift. Basilar cisterns are patent.Periventricular white matter hypodensities likely due to chronic small vessel ischemic change Ventricular system: No hydrocephalus. At the level of the foramen Edgar, there is a 0.6 x 0.6 cm well -circumscribed hyperdense isodense lesion compatible with a colloid cyst. No associated hydrocephalus. Calvarium: Intact. Sinuses and mastoid air cells: Adequate aeration. IMPRESSION: 1. No acute intracranial process. 2. 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
[2019-12-04 16:39] LABS: Bilirubin Negative (Negative); Blood, Urine 2+ (Negative); Clarity Clear (Clear); Glucose, Urine (Dipstick) Normal (Negative); Leukocyte Negative Leu/uL (Negative); Nitrite Negative (Negative); Protein, Urine (Dipstick) 20 mg/dL (Neg-Trace); RBC/HPF Greater than 50 HPF (0-3); Renal Epithelial 0-3 HPF (None Seen); Squamous Epithelial None Seen HPF (0-3); Urobilinogen Normal mg/dL (Less than 2)
[2019-12-04 16:50] LABS: Bacteria/HPF None Seen HPF (None Seen)
[2019-12-04] MEDS ORDERED: Ondansetron PF 4 MG/2 ML Vial ONE (17:16)
[2019-12-04] MEDS ORDERED: Morphine 4 MG/ML VIAL ONE (17:16)
--- NOTE | 2019-12-04 18:59 | CT ---
CT ABDOMEN AND PELVIS PERFORMED WITH CONTRAST ENHANCEMENT: 12/04/19 HISTORY: Abdominal pain. History of endometrial or cervical cancer. Pain with urination. History of stent plac ement. COMPARISON: 12/01/19 study. Bilateral lower lobe pulmonary nodules again identified. Left lobe liver mass appears similar to the previous exam. The spleen, pancreas and gallbladder regio ns appear unremarkable. Right and left adrenal glands are normal in appearance. Moderate bilateral hy dronephrosis is again noted. Ureteral stents are in place. The left ureteral stent does pass into the bladder. The right ureteral stent appears to terminate more in the bladder wall region. There is a F oley catheter in place. There is air within the bladder which is presumed to be related to instrument ation. The pelvic mass is similar to the previous exam. The periaortic adenopathy appears similar. Bl adder wall thickening is unchanged. There is some fat stranding in the region of the space of Retzius . Chronic diverticulosis incidentally seen. IMPRESSION: 1. Fairly stable overall examination. Moderately severe bilateral hydronephrosis. This is not fe lt to be significantly different than the prior exam. Bilateral ureteral stents are again noted in pl jenn unchanged in position. Bladder wall thickening is noted. There is now a Tam catheter in place. 2. Stable appearance to the pulmonary masses, liver mass and periaortic and pelvic lymphadenopat hy. POS: ASHANTI
[2019-12-04] MEDS ORDERED: HYDROcodone/Acetaminophen 5/325 mg Tablet ONE (19:54)
--- NOTE | 2019-12-07 16:13 | EKG ---
Test Reason : Blood Pressure : / mmHG Vent. Rate : 061 BPM Atrial Rate : 062 BPM P-R Int : 000 ms QRS Dur : 070 ms QT Int : 414 ms P-R-T Axes : 000 079 029 degrees QTc Int : 416 ms Atrial-paced rhythm with prolonged AV conduction Low voltage QRS Abnormal ECG Confirmed by GABE CARBONE M.D. ([id number]), loan expeditor TONY MENDEZ ([id number]) on 12/07/2019 4:13:27 PM Referred By: Confirmed By:GABE CARBONE M.D.
== END 2019-12-04 20:02 | disposition home or self-care (01) ==
LOC: ERS 11:59
DX: R41.0 Disorientation, unspecified (principal); R10.9 Unspecified abdominal pain; R20.2 Paresthesia of skin; I25.10 Atherosclerotic heart disease of native coronary artery without angina pectoris; E03.9 Hypothyroidism, unspecified; E78.5 Hyperlipidemia, unspecified; I10 Essential (primary) hypertension; I48.91 Unspecified atrial fibrillation; Z87.891 Personal history of nicotine dependence; Z79.899 Other long term (current) drug therapy
CPT/HCPCS: 36415; 70450; 74177; 80053; 81003; 81015; 83605; 84484; 85025; 87040; 93005; 96361; 96374; 96375; J2270; J2405; Q9967